=== PATIENT | female | born 1955 | race Caucasian/White ===

== ENCOUNTER → 2018-09-20 09:33 | Outpatient (CLI) | payer OTHER, SELFPAY | PROVIDERS: Visit Provider Orthopaedic Surgery Hand Surgery | DX: Z01.818 Encounter for other preprocedural examination (principal) | CPT/HCPCS: 93005 ==

== ENCOUNTER → 2018-12-10 10:14 | Outpatient (CLI) | payer OTHER, SELFPAY ==
--- NOTE | 2018-12-10 | DI.CT.S_ITS ---
PROCEDURE: CT SINUS SCREEN WO CON INDICATIONS: Chronic sinusitis, unspecified TECHNIQUE: Noncontrast 3.0 mm axial images acquired from the frontal sinuses to the mid-sella, with coronal and sagittal reformats. For radiation dose reduction, the following was used: automated exposure control, adjustment of mA and/or kV according to patient size. COMPARISON: [facility], CT, SINUS SCREEN WO CONTRAST, 12/27/2017, 8:20. FINDINGS: Image quality: Excellent. Maxillary Sinuses: No bony remodeling or destruction. There is a small mucus retention cyst in the right maxillary sinus. Ethmoid Air Cells: No bony remodeling or destruction. Sinuses are clear. Sphenoid Sinuses: No bony remodeling or destruction. Sinuses are clear. Frontal Sinuses: No bony remodeling or destruction. Sinuses are clear. Ostiomeatal Complexes: Ostiomeatal complexes are patent. Small Vitor cells are noted bilaterally. Miscellaneous: Visualized intra-orbital contents are normal. Harmony bullosa on the right. Mild left nasal septal deviation. IMPRESSION: 1. Small right maxillary sinus mucus retention cyst is noted. No sinus mucosal thickening or air-fluid levels. 2. Vitor cell are noted bilaterally causing mild narrowing of the ostiomeatal units. The ostiomeatal units are nevertheless patent. 3. Right harmony bullosa. 4. Mild left nasoseptal deviation. Dictated by: Vandana Contreras M.D. on 12/10/2018 at 10:57 Approved by: Vandana Contreras M.D. on 12/10/2018 at 11:04
== END ==
PROVIDERS: PCP Internal Medicine; Visit Provider Internal Medicine
DX: J34.1 Cyst and mucocele of nose and nasal sinus (principal); J32.9 Chronic sinusitis, unspecified; J34.3 Hypertrophy of nasal turbinates; J34.2 Deviated nasal septum
CPT/HCPCS: 70486

== ENCOUNTER → 2018-12-16 11:47 | Outpatient (CLI) | payer OTHER, SELFPAY ==
[2018-12-16 14:29] LABS: Blood Urea Nitrogen 16 mg/dL (7-17); Estimated Glomerular Filt Rate > 60.0 mL/min (>60)
== END ==
PROVIDERS: PCP Internal Medicine; Visit Provider Internal Medicine
DX: M81.0 Age-related osteoporosis without current pathological fracture (principal)
CPT/HCPCS: 36415; 82565; 84520

== ENCOUNTER → 2018-12-29 16:55 | Outpatient (CLI) | payer OTHER, SELFPAY | PROVIDERS: PCP Internal Medicine; Visit Provider Otolaryngology | DX: J30.1 Allergic rhinitis due to pollen (principal); J30.89 Other allergic rhinitis ==

== ENCOUNTER → 2019-01-06 16:01 | Outpatient (CLI) | payer OTHER, SELFPAY | PROVIDERS: PCP Internal Medicine; Visit Provider Otolaryngology | DX: J30.1 Allergic rhinitis due to pollen (principal); J30.89 Other allergic rhinitis | CPT/HCPCS: 36415; 86003 ==

== ENCOUNTER → 2019-05-12 16:17 | Outpatient (CLI) | payer OTHER, SELFPAY ==
--- NOTE | 2019-05-12 16:19 | DI.RAD.S_ITS ---
PROCEDURE: XR CERVICAL SPINE 4V OR 5V INDICATIONS: neck pain and headaches side -locked R side TECHNIQUE: 5 views of the cervical spine acquired. COMPARISON: None. FINDINGS: Bones: No fractures or dislocations to the T2 level. Grade 1 anterolisthesis of C3 on C4. Trace anterolisthesis of C4 on C5. Severe narrowing of the C5-C6 and C6-7 disc spaces. Multilevel degenerative endplate sclerosis and spurring. Diffuse facet arthropathy. Levocurvature. On the left, there is moderate diffuse otic foraminal narrowing all spinal levels. On the right, there is severe bony foraminal narrowing at the level of C5-C6 and C6-C7. There is mild right C7-T1 bony foraminal narrowing Soft tissues: No prevertebral soft tissue swelling. IMPRESSION: Multilevel cervical spondylosis and facet arthropathy as above. Levocurvature. Dictated by: Terry Gaitan M.D. on 05/12/2019 at 17:15 Approved by: Terry Gaitan M.D. on 05/12/2019 at 17:18
[2019-05-12 17:15] LABS: Erythrocyte Sedimentation Rate 14 MM/HR (0-20)
== END ==
PROVIDERS: PCP Internal Medicine; Visit Provider Family Medicine
DX: R51 Headache (principal)
CPT/HCPCS: 36415; 72050; 85651

== ENCOUNTER → 2020-02-29 14:50 | Outpatient (CLI) | payer OTHER, SELFPAY ==
[2020-02-29 16:27] LABS: BUN Creatinine Ratio 25.3 (6-22); Blood Urea Nitrogen 22 mg/dL (7-17); Estimated Glomerular Filt Rate > 60.0 mL/min (>60)
== END ==
PROVIDERS: PCP Internal Medicine; Referring Provider Internal Medicine; Visit Provider Internal Medicine
DX: M81.0 Age-related osteoporosis without current pathological fracture (principal); Z78.0 Asymptomatic menopausal state
CPT/HCPCS: 36415; 77080; 82565; 84520

== ENCOUNTER → 2020-03-08 11:14 | Outpatient (CLI) | payer OTHER, SELFPAY ==
[2020-03-08 12:35] LABS: BUN Creatinine Ratio 20.5 (6-22); Blood Urea Nitrogen 15 mg/dL (7-17); Estimated Glomerular Filt Rate > 60.0 mL/min (>60)
== END ==
PROVIDERS: PCP Internal Medicine; Referring Provider Internal Medicine; Visit Provider Internal Medicine
DX: M81.0 Age-related osteoporosis without current pathological fracture (principal)
CPT/HCPCS: 36415; 82565; 84520

== ENCOUNTER → 2020-10-31 17:43 | Outpatient (CLI) | payer OTHER, SELFPAY ==
--- NOTE | 2020-10-31 17:48 | DI.MG.S_ITS ---
BILATERAL DIGITAL SCREENING MAMMOGRAM 3D/2D WITH CAD: 10/31/2020 CLINICAL: Routine screening. Family history of breast cancer. Comparison is made to exams dated: 09/25/2019 mammogram, 08/29/2018 mammogram, and 08/30/2017 mammogram - outside location. The tissue of both breasts is heterogeneously dense. This may lower the sensitivity of mammography. Current study was also evaluated with a Computer Aided Detection (CAD) system. No significant masses, calcifications, or other findings are seen in either breast. There has been no significant interval change. IMPRESSION: NEGATIVE There is no mammographic evidence of malignancy. A 1 year screening mammogram is recommended. This exam was interpreted at Station ID: [id number]. NOTE: For mammograms, a report in lay terms will be sent to the patient. Approximately 15% of breast malignancies will not be visualized mammographically. In the management of a palpable breast mass, a negative mammogram must not discourage biopsy of a clinically suspicious lesion. Electronically Signed By: Samanta sweet/yariel:11/01/2020 13:16:08 copy to: elliott dunn, [facility] letter sent: Normal Exam ACR BI-RADS Category 1: Negative 3341F
== END ==
PROVIDERS: PCP Internal Medicine; Referring Provider Internal Medicine; Visit Provider Internal Medicine
DX: Z12.31 Encounter for screening mammogram for malignant neoplasm of breast (principal); Z80.3 Family history of malignant neoplasm of breast
CPT/HCPCS: 77063; 77067

== ENCOUNTER → 2021-02-23 07:58 | Outpatient (CLI) | payer MEDICARE, SELFPAY ==
--- NOTE | 2021-02-23 | DI.ECHO.S_ITS ---
[place] [facility]---------+ [facility] +---------+ : : [address] : : : : [id number] : : : : Phone: [phone]---------+ Echocardiogram Report + + :Name: LISA HAINES Study Date: 02/23/2021 Height: 66 in : :[facility] ReadingLocation: Weight: 114 lb : : Gender: Female BSA: 1.6 m2 : :: 1955 Age: 65 yrs BP: 131/78 mmHg: :Reason For Study: ABNORMAL EKG : :Ordering Physician: RADHA, : :AFSHAN Performed By: Milagros Lei : :Referring: AFSHAN GARCIA : + + Interpretation Summary The left ventricle is normal in size and wall thickness. Left ventricular systolic function is normal. Cannot exclude mid lateral hypokinesis due to suboptimal visualization of endocardial border lining. The right ventricle is normal in size and function. The right ventricular systolic pressure is estimated to be at least 24 mmHg based on an estimated right atrial pressure of 3 mm Hg. The left atrium is mildly dilated. Right atrial size is normal. There is no significant valvular heart disease. The aortic root is normal size. Procedure: A two-dimensional transthoracic echocardiogram with color flow and Doppler was performed. The study quality was technically adequate. There is no prior echocardiogram noted for this patient. The patient was in sinus bradycardia with heart rates between 47-63 bpm during the exam. Left Ventricle: The left ventricle is normal in size and wall thickness. Left ventricular systolic function is normal. The ejection fraction is estimated to be 60-65%. Cannot exclude mid lateral hypokinesis due to suboptimal visualization of endocardial border lining. Diastolic parameters suggest probable normal left ventricular diastolic function and normal filling pressures. Right Ventricle: The right ventricle is normal in size and function. Atria: The left atrium is mildly dilated. Right atrial size is normal. There is no Doppler evidence for an interatrial shunt. Mitral Valve: There is a flat closure plane of the the mitral valve leaflets. There is trace mitral regurgitation. Aortic Valve: The aortic valve is trileaflet. The aortic valve opens well. There is no aortic valve stenosis. No aortic regurgitation is present. Tricuspid Valve: The tricuspid valve is normal in structure and function. There is mild tricuspid regurgitation. The right ventricular systolic pressure is estimated to be at least 24 mmHg based on an estimated right atrial pressure of 3 mm Hg. Pulmonic Valve: The pulmonic valve leaflets are thin and pliable; valve motion is normal. There is no pulmonic valvular regurgitation. There is no significant valvular heart disease. Great Vessels: The aortic root is normal size. The dimensions of the ascending aorta are normal. The IVC is of normal diameter and collapses greater than 50% with a sniff. This suggests a low right atrial pressure of 3 mm Hg. Pericardium/ Pleura There is no pericardial effusion. There is no pleural effusion. MMode/2D Measurements & Calculations LVIDd: 4.3 cm LVOT diam: 2.0 cm LVIDs: 2.8 cm Ao root diam: 3.0 cm FS: 34.9 % asc Aorta Diam: 3.0 cm EPSS: 0.18 cm Ao Arch Diam (Prox Trans): 2.5 cm IVSd: 0.77 cm LVPWd: 0.75 cm LV aguilar. diameter/BSA (cm/m^2): 2.7 LV sys. diameter/BSA (cm/m^2): 1.8 LA A2 area: 20.7 cm2 RA long axis: 4.7 cm LA A4 area: 18.5 cm2 RA area: 14.1 cm2 LA length (vol): 5.2 cm RA vol: 36.3 ml LA vol: 62.4 ml RA : 23.0 ml/m2 LA vol index: 39.6 ml/m2 IVC diam: 1.4 cm RVD1 (basal): 3.1 cm TAPSE: 2.1 cm Doppler Measurements & Calculations Ao V2 max: 112.7 cm/sec LVOT Max Jared: 119.1 cm/sec Ao V2 mean: 72.7 cm/sec LV V1 max P.7 mmHg Ao max P.1 mmHg LV V1 VTI: 29.1 cm Ao mean P.4 mmHg CARLOS(I,D): 3.4 cm2 Ao V2 VTI: 27.1 cm CARLOS(V,D): 3.3 cm2 sev ratio: 1.1 CARLOS indexed to BSA (cm^2/m^2): 2.1 MV E max jared: 104.9 cm/sec TR max jared: 225.1 cm/sec MV A max jared: 54.7 cm/sec TR max P.5 mmHg MV E/A: 1.9 PA V2 max: 57.0 cm/sec Med Peak E' Jared: 6.9 cm/sec PA V2 mean: 37.2 cm/sec E/E' med: 15.1 PA mean P.65 mmHg Lat Peak E' Jared: 8.3 cm/sec PA pr(Accel): 22.5 mmHg E/E' lat: 12.6 E/e' average: 13.9 MV dec time: 0.19 sec SV(LVOT): 90.9 ml Reading Physician:04:46 PM
== END ==
PROVIDERS: PCP Internal Medicine; Referring Provider Internal Medicine; Visit Provider Internal Medicine
DX: R94.31 Abnormal electrocardiogram [ECG] [EKG] (principal)
CPT/HCPCS: 93306

== ENCOUNTER → 2021-03-24 09:25 | Outpatient (CLI) | payer MEDICARE, SELFPAY ==
[2021-03-24 10:36] LABS: Albumin 4.3 g/dL (3.5-5.0); Aspartate Aminotransferase 37 IU/L (14-36); BUN Creatinine Ratio 20.3 (6-22); Blood Urea Nitrogen 15 mg/dL (7-17); Calcium 9.2 mg/dL (8.4-10.2); Carbon Dioxide 28 mmol/L (22-32); Chloride 104 mmol/L (98-107); Cholesterol 239 mg/dL (140-199); Estimated Glomerular Filt Rate > 60.0 mL/min (>60); Glucose 99 mg/dL (80-110); HDL Cholesterol 55 mg/dL (40-60); HEMOLYSIS < 15 (0-50); LDL Cholesterol Calculated 163 mg/dL (<100); Phosphorous 3.9 mg/dL (2.8-4.1); Sodium 138 mmol/L (137-145); Triglycerides 105 mg/dL (35-150)
== END ==
PROVIDERS: PCP Internal Medicine; Referring Provider Internal Medicine; Visit Provider Internal Medicine
DX: M81.0 Age-related osteoporosis without current pathological fracture (principal); E78.2 Mixed hyperlipidemia
CPT/HCPCS: 36415; 80061; 80069; 84450

== ENCOUNTER → 2021-06-16 10:38 | Outpatient (CLI) | payer MEDICARE, SELFPAY ==
--- NOTE | 2021-06-16 | DI.CT.S_ITS ---
PROCEDURE: CT SINUS SCREEN WO CON INDICATIONS: Chronic pansinusitis TECHNIQUE: Noncontrast 3.0 mm axial images acquired from the frontal sinuses to the mid-sella, with coronal and sagittal reformats. For radiation dose reduction, the following was used: automated exposure control, adjustment of mA and/or kV according to patient size. COMPARISON: [facility], CT, CT SINUS SCREEN WO CON, 12/10/2018, 10:30. FINDINGS: Image quality: Excellent. Maxillary Sinuses: No bony remodeling or destruction. There is a small mucous retention cyst seen within the inferior aspect of the right maxillary sinus, which is similar to the prior examination. The maxillary sinuses otherwise appear clear. Ethmoid Air Cells: No bony remodeling or destruction. Sinuses are clear. Sphenoid Sinuses: No bony remodeling or destruction. Sinuses are clear. Frontal Sinuses: No bony remodeling or destruction. Sinuses are clear. Ostiomeatal Complexes: Ostiomeatal complexes are patent, yet there constitutionally narrowed, with bilateral Vitor cells. Miscellaneous: Visualized intra-orbital contents are normal. There is a small right-sided. There is mild S shaped nasal septal deviation. IMPRESSION: No significant active paranasal sinus disease is seen. A small right maxillary sinus mucous retention cyst is again seen. Constitutionally narrowed ostiomeatal complexes are again seen. Dictated by: Robert Dupree M.D. on 06/16/2021 at 9:56 Approved by: Robert Dupree M.D. on 06/16/2021 at 10:00
== END ==
PROVIDERS: PCP Internal Medicine; Referring Provider Otolaryngology; Visit Provider Otolaryngology
DX: J32.4 Chronic pansinusitis (principal); J34.1 Cyst and mucocele of nose and nasal sinus
CPT/HCPCS: 70486

== ENCOUNTER → 2021-11-11 10:22 | Outpatient (CLI) | payer MEDICARE, SELFPAY ==
--- NOTE | 2021-11-11 10:23 | DI.MG.S_ITS ---
BILATERAL DIGITAL SCREENING MAMMOGRAM 3D/2D WITH CAD: 11/11/2021 CLINICAL: Routine screening. Family history of breast cancer. Comparison is made to exams dated: 10/31/2020 mammogram - [facility], 09/25/2019 mammogram, and 08/29/2018 mammogram - outside location. The tissue of both breasts is heterogeneously dense. This may lower the sensitivity of mammography. Current study was also evaluated with a Computer Aided Detection (CAD) system. No significant masses, calcifications, or other findings are seen in either breast. There has been no significant interval change. IMPRESSION: NEGATIVE There is no mammographic evidence of malignancy. A 1 year screening mammogram is recommended. This exam was interpreted at Station ID: [id number]. NOTE: For mammograms, a report in lay terms will be sent to the patient. Approximately 15% of breast malignancies will not be visualized mammographically. In the management of a palpable breast mass, a negative mammogram must not discourage biopsy of a clinically suspicious lesion. Electronically Signed By: Zhou Maradiaga M.D., jr/yariel:11/13/2021 09:12:18 copy to: elliott dunn, [facility] letter sent: Normal Exam ACR BI-RADS Category 1: Negative 3341F
== END ==
PROVIDERS: PCP Internal Medicine; Referring Provider Internal Medicine; Visit Provider Internal Medicine
DX: Z12.31 Encounter for screening mammogram for malignant neoplasm of breast (principal); Z80.3 Family history of malignant neoplasm of breast
CPT/HCPCS: 77063; 77067

== ENCOUNTER → 2022-02-16 10:26 | Outpatient (CLI) | payer MEDICARE, SELFPAY | PROVIDERS: PCP Internal Medicine; Referring Provider Internal Medicine; Visit Provider Internal Medicine | DX: M81.0 Age-related osteoporosis without current pathological fracture (principal) | CPT/HCPCS: 77080 ==

== ENCOUNTER → 2022-03-20 07:42 | Outpatient (CLI) | payer MEDICARE, SELFPAY ==
[2022-03-20 10:16] LABS: Alanine Aminotransferase 38 IU/L (<35); Aspartate Aminotransferase 37 IU/L (14-36); Cholesterol 148 mg/dL (140-199); Creatine Kinase 50 U/L (30-135); HDL Cholesterol 55 mg/dL (40-60); LDL Cholesterol Calculated 77 mg/dL (<100); Triglycerides 78 mg/dL (35-150)
[2022-03-20 10:21] LABS: BUN Creatinine Ratio 25.3 (6-22); Blood Urea Nitrogen 20 mg/dL (7-17); Calcium 8.9 mg/dL (8.4-10.2); Carbon Dioxide 28 mmol/L (22-32); Chloride 107 mmol/L (98-107); Estimated Glomerular Filt Rate > 60 mL/min (>60); Glucose 86 mg/dL (80-110); HEMOLYSIS < 15 (0-50); Magnesium 2.2 mg/dL (1.6-2.3); Potassium 4.1 mmol/L (3.4-5.1); Sodium 141 mmol/L (137-145)
[2022-03-20 10:27] LABS: LDL Cholesterol Direct 65 mg/dL (<100)
[2022-03-20 10:35] LABS: Vitamin D 25 Hydroxy (D3) 61.7 ng/mL (30.0-100.0)
[2022-03-21 08:53] LABS: Parathyroid Hormone Int 26 pg/mL (15-65)
== END ==
PROVIDERS: Internal Medicine Interventional Cardiology; PCP Internal Medicine; Referring Provider Internal Medicine; Visit Provider Internal Medicine
DX: E78.5 Hyperlipidemia, unspecified (principal); M81.0 Age-related osteoporosis without current pathological fracture
CPT/HCPCS: 36415; 80048; 80061; 82306; 82550; 83721; 83735; 83970; 84100; 84450; 84460

== ENCOUNTER → 2022-03-22 09:35 | Outpatient (CLI) | payer MEDICARE, SELFPAY ==
[2022-03-22 11:43] LABS: Collection Time Urine 24 Hours; Creatinine 24 Hour Urine 1108 mg/day (800-1800); Creatinine Urine Random 40.3 mg/dL; Protein (Total) Urine Random 8 mg/dL (0-12); Total Protein 24 Hour Urine 220 mg/day (42-225); Total Volume Urine 2750 mL
[2022-04-10 11:59] LABS: Calcium 24 Hour Urine 259 mg/day (100-300); Calcium Urine Random 9.4 mg/dL; Collection Time Urine 24 Hours; Total Volume Urine 2750 mL
== END ==
PROVIDERS: PCP Internal Medicine; Referring Provider Internal Medicine; Visit Provider Internal Medicine
DX: M81.0 Age-related osteoporosis without current pathological fracture (principal)
CPT/HCPCS: 82340; 82570; 84156

== ENCOUNTER 2022-04-02 21:13 | Emergency (ER) | payer MEDICARE, SELFPAY ==
[2022-04-02] VITALS (15 sets, daily range): BP systolic 92–148; BP diastolic 53–91; PULSE 52–135; RESP 16–27; TEMP 36.9; O2SAT 96–100; BMI 18.1
--- NOTE | 2022-04-02 21:28 | DI.RAD.S_ITS ---
PROCEDURE: XR CHEST 1V INDICATIONS: chest pain TECHNIQUE: One view of the chest was acquired. COMPARISON: [facility], , CHEST 2 VIEW, 12/10/2013, 13:35. FINDINGS: Surgical changes and devices: None. Lungs and pleura: Right lung apex is partially obscured by patient's neck soft tissues. Visualized lungs are clear. There is hyperinflation of the lungs with flattening of the hemidiaphragms compatible with COPD. No pleural effusions or definite pneumothorax. Mediastinum: Mediastinal contours appear normal. Heart size is normal. Bones and chest wall: No suspicious bony lesions. Overlying soft tissues appear unremarkable. IMPRESSION: 1. No definite acute cardiopulmonary disease. 2. Findings compatible with COPD. Dictated by: Titus Means M.D. on 04/02/2022 at 22:44 Approved by: Titus Means M.D. on 04/02/2022 at 22:45
[2022-04-02 21:47] LABS: Add Manual Diff / Slide Review NO; Basophils Absolute Auto 100 /uL (0-100); Basophils Percent Auto 0.9 % (0-2); Eosinophils Absolute Auto 200 /uL (0-450); Eosinophils Percent Auto 2.1 % (2-4); Hemoglobin 15.1 g/dL (12.0-16.0); Lymphocytes Absolute Auto 2700 /uL (1100-4500); Lymphocytes Percent Auto 35.8 % (25-40); Mean Corpuscular HGB Conc 34.3 % (30-36); Mean Corpuscular Hemoglobin 32.2 PG (26-34); Mean Corpuscular Volume 93.9 fL (80-100); Monocytes Absolute Auto 700 /uL (0-900); Monocytes Percent Auto 8.7 % (3-14); Neutrophils Absolute Auto 4000 /uL (1500-7000); Neutrophils Percent Auto 52.5 % (50-75); Platelet Count 243 X10^3/uL (150-400); Red Blood Cell Count 4.69 X10^6/uL (4.0-5.2); Red Cell Distribution Width 12.6 % (11.6-14.8); White Blood Cell Count 7.7 X10^3/uL (4.5-11.0)
[2022-04-02 21:50] LABS: Prothrombin Time 11.4 SECONDS (10.1-12.7)
--- NOTE | 2022-04-02 21:50 | ED_ITS ---
HPI - Arrhythmia/Palpitations General Chief Complaint: Arrhythmia/Palpitations Stated Complaint: BLOOD PRESSURE IF OFF HIGH PULSE Time Seen by Provider: 04/02/22 21:33 Source: patient and family Mode of arrival: Ambulatory History of Present Illness HPI narrative: 66-year-old female without prior history of atrial fibrillation who is here for evaluation of just over 12 hours of palpitations. She also states that her blood pressures been elevated. She denies chest pain. No shortness of breath. No lightheadedness. She woke up this morning feeling like her heart was beating fast. She is on metoprolol and she has been taking this medication as directed and it has not improved any of her symptoms. Denies any fevers. No recent t ravel. Related Data Home Medications Medication Instructions Recorded Confirmed pseudoephedrine HCl 120 mg 120 mg PO Q12HP PRN ##0 05/10/17 01/26/22 tablet,extended release (Sudafed 12 Hour) cholecalciferol (vitamin D3) 50 50 mcg PO DAILY 01/26/22 01/26/22 mcg (2,000 unit) capsule fexofenadine 180 mg tablet 180 mg PO DAILY 01/26/22 01/26/22 (Erika Allergy) flaxseed oil 1,000 mg capsule 1,000 mg PO DAILY 01/26/22 01/26/22 multivitamin 1 tab PO DAILY 01/26/22 01/26/22 Previous Rx's Medication Instructions Recorded amlodipine 10 mg tablet 10 mg PO DAILY #90 tabs 01/26/22 metoprolol tartrate 25 mg tablet 25 mg PO BID #180 tabs 01/26/22 rosuvastatin 10 mg tablet 10 mg PO DAILY #90 tabs 01/26/22 apixaban 5 mg tablet (Eliquis) 5 mg PO BID 4 weeks #56 tabs 04/02/22 Allergies Allergy/AdvReac Type Severity Reaction Status Date / Time Sulfa (Sulfonamide Allergy Unknown Rash Verified 01/26/22 13:33 Antibiotics) [SULFA (SULFONAMIDE ANTIBIOTICS)] valsartan AdvReac Mild Nausea Verified 01/26/22 13:33 Review of Systems Constitutional Constitutional: Denies fever(s) Cardiovascular Cardiovascular: Reports system reviewed and no additional complaints, except as documented Respiratory Respiratory: Reports system reviewed and no additional complaints, except as documented Integumentary/Breasts Skin/Breast: Reports system reviewed and no additional complaints, except as documented Hematologic/Lymphatic On Anticoagulants: No Patient History Medical History Allergic rhinitis Chicken pox (~1958) Chronic sinusitis Essential hypertension Fractures (~1993) Measles (~1961) Mixed hyperlipidemia Mumps (~1959) Osteoarthritis (~2017) Osteoporosis (~2016) Vision disorder Surgical History Anesthesia History of dilatation and curettage (~2007) History of eye surgery (~2005) History of gastric surgery (~2016) History of skin graft (~1975) Trigger thumb (~2018) Family History Father Prostate cancer Lung cancer Hypertension Hyperlipidemia Mother Hypertension Hyperlipidemia Stroke Brother Parkinson's disease Brother Mental health problem Grandfather Parkinson's disease Grandfather History of emphysema Grandmother Dementia Social History Smoking Status: Former smoker Smoking Status: Former smoker Substance Use Type: does not use Exam Initial Vital Signs Initial Vital Signs: Vital Signs Temperature 98.5 F 04/02/22 21:15 Pulse Rate 135 H 04/02/22 21:15 Respiratory Rate 16 04/02/22 21:15 Blood Pressure 141/79 H 04/02/22 21:15 Pulse Oximetry 100 04/02/22 21:15 Oxygen Delivery Method 04/02/22 21:15 Const General: cooperative, healthy appearing and comfortable [facility] Head: normal to inspection and normocephalic Resp Effort & Inspection: normal respiratory effort Auscultation: clear to auscultation bilaterally Cardio Rate: tachycardic Rhythm: regular rhythm GI Inspection: normal to inspection Skin General: no rashes or lesions noted Neuro General: patient alert, patient awake, patient oriented x3 and moves all extremities Extrem General: normal to inspection and capillary refill normal Procedures Cardioversion Consent Signed: Yes Indication: Atrial fibrillation Stability: Stable Number of attempts (shocks): 1 Joules used: 120 Cardiac rhythm post-cardioversion: Sinus rhythm Procedural Sedation Consent signed: Yes Time out performed: Yes Indication: cardioversion Preparation: restaurant line server applied, pulse oximeter, capnometry used, supplemental O2 applied, suction/airway equipment at bedside and IV secured Fentanyl: IV IV Propofol dose (mg): 70 Intraservice time/total sedation time (min): 10 ED Sedation Level: Moderate (Concious) Patient Tolerated Procedure: Well and No complications Course Orders Ordered: ED Orders 04/02/22 21:28 XR chest 1V Stat EKG-12 Lead Stat 04/02/22 21:30 Complete Blood Count AUTO DIFF Stat Comprehensive Metabolic Panel Stat Lipase Stat Magnesium Stat Partial Thromboplastin Time Stat Prothrombin Time INR Stat TSH [Thyroid Stimulating Hormone] Stat Troponin & CK Cardiac Panel Stat 04/02/22 21:49 COVID19 -Nasal RAPID/Pre-Proc Stat 04/02/22 21:52 EKG-12 Lead Stat Discontinued Medications Apixaban (Apixaban 5 Mg Tablet) 5 mg PO NOW ONE Stop: 04/02/22 23:24 Last Admin: 04/02/22 23:29 Dose: 5 mg Documented By: DANIEL Fentanyl (Fentanyl 100 Mcg/2 Ml Inj) 12.5 mcg IV NOW ONE Stop: 04/02/22 21:52 Last Admin: 04/02/22 22:44 Dose: 12.5 mcg Documented By: DANIEL Sodium Chloride (Normal Saline 0.9%) 1,000 mls @ 125 mls/hr IV CONT PAVAN Last Infusion: 04/02/22 23:50 Dose: 0 mls/hr Documented By: Admin: 04/02/22 22:30 Dose: 125 mls/hr Documented By: DANIEL Propofol (Propofol 200 Mg/20 Ml Vial) 100 mg 2 mg/kg (100 mg) IV NOW ONE Stop: 04/02/22 21:52 Last Admin: 04/02/22 22:46 Dose: 70 mg Documented By: DANIEL Vital Signs Vital signs: Vital Signs - 8 hr 04/02/22 21:15 04/02/22 22:42 04/02/22 21:30 Temperature 98.5 F Pulse Rate 135 H 92 H 134 H Respiratory Rate 16 18 22 Blood Pressure 141/79 H 133/79 Pulse Oximetry 100 98 Oxygen Delivery Method Room Air Oxygen Flow Rate 04/02/22 22:00 04/02/22 22:00 04/02/22 22:30 Temperature Pulse Rate 101 H 102 H Respiratory Rate 27 H Blood Pressure 148/91 H Pulse Oximetry Oxygen Delivery Method Oxygen Flow Rate 04/02/22 22:45 04/02/22 22:45 04/02/22 22:50 Temperature Pulse Rate 96 H 83 Respiratory Rate 21 23 Blood Pressure 133/79 Pulse Oximetry 99 97 Oxygen Delivery Method Nasal Cannula Oxygen Flow Rate 2 04/02/22 22:50 04/02/22 22:56 04/02/22 22:56 Temperature Pulse Rate 54 L Respiratory Rate 23 Blood Pressure 92/59 L 107/53 L Pulse Oximetry 97 Oxygen Delivery Method Room Air Oxygen Flow Rate 04/02/22 23:00 04/02/22 23:00 04/02/22 23:05 Temperature Pulse Rate 55 L Respiratory Rate 19 Blood Pressure 110/56 L 114/58 L Pulse Oximetry 96 Oxygen Delivery Method Oxygen Flow Rate 04/02/22 23:05 04/02/22 23:10 04/02/22 23:10 Temperature Pulse Rate 55 L 52 L Respiratory Rate 18 18 Blood Pressure 103/57 L Pulse Oximetry 97 97 Oxygen Delivery Method Room Air Oxygen Flow Rate 04/02/22 23:15 04/02/22 23:15 04/02/22 23:20 Temperature Pulse Rate 52 L Respiratory Rate 22 Blood Pressure 109/62 134/61 Pulse Oximetry 97 Oxygen Delivery Method Oxygen Flow Rate 04/02/22 23:20 04/02/22 23:25 04/02/22 23:25 Temperature Pulse Rate 52 L 53 L Respiratory Rate 21 19 Blood Pressure 129/70 Pulse Oximetry 98 98 Oxygen Delivery Method Oxygen Flow Rate 04/02/22 23:30 Temperature Pulse Rate 59 L Respiratory Rate 26 H Blood Pressure Pulse Oximetry 99 Oxygen Delivery Method Room Air Oxygen Flow Rate MDM - Arrhythmia/Palpitations Lab Data Result diagrams: 04/02/22 21:30 04/02/22 21:30 Labs: Lab Results 04/02/22 04/02/22 04/02/22 Range/Units 21:30 21:30 21:30 WBC 7.7 (4.5-11.0) X10^3/uL RBC 4.69 (4.0-5.2) X10^6/uL Hgb 15.1 (12.0-16.0) g/dL Hct 44.0 (36-46) % MCV 93.9 (80-100) fL MCH 32.2 (26-34) PG MCHC 34.3 (30-36) % RDW 12.6 (11.6-14.8) % Plt Count 243 (150-400) X10^3/uL Neut % (Auto) 52.5 (50-75) % Lymph % (Auto) 35.8 (25-40) % Barnwell % (Auto) 8.7 (3-14) % Eos % (Auto) 2.1 (2-4) % Baso % (Auto) 0.9 (0-2) % Neut # (Auto) 4000 (7881-3063) /uL Lymph # (Auto) 2700 (9393-9759) /uL Barnwell # (Auto) 700 (0-900) /uL Eos # (Auto) 200 (0-450) /uL Baso # (Auto) 100 (0-100) /uL PT 11.4 (10.1-12.7) SECONDS INR 1.0 (0.9-1.3) APTT 31 (26.4-36.2) SECONDS Sodium 141 (137-145) mmol/L Potassium 3.8 (3.4-5.1) mmol/L Chloride 106 (98-107) mmol/L Carbon Dioxide 23 (22-32) mmol/L BUN 31 H (7-17) mg/dL Creatinine 0.88 (0.52-1.04) mg/dL Estimated GFR > 60 (>60) mL/min BUN/Creatinine Ratio 35.2 H (6-22) Glucose 145 H (80-110) mg/dL Calcium 9.6 (8.4-10.2) mg/dL Magnesium 2.1 (1.6-2.3) mg/dL Total Bilirubin 0.3 (0.2-1.3) mg/dL AST 35 (14-36) IU/L ALT 29 (<35) IU/L Alkaline Phosphatase 88 (38-126) U/L Total Creatine Kinase 74 (30-135) U/L CK-MB (CK-2) TNP CK-MB (CK-2) Rel Index TNP Troponin I < 0.012 (0.01-0.034) ng/mL Total Protein 7.6 (6.3-8.2) g/dL Albumin 4.7 (3.5-5.0) g/dL Globulin 2.9 (1.7-4.1) g/dL Albumin/Globulin Ratio 1.6 (1.0-2.8) Lipase 204 (23-300) U/L TSH (0.47-4.68) uIU/mL SARS-CoV-2 (PCR) (Negative) 04/02/22 04/02/22 Range/Units 21:30 21:49 WBC (4.5-11.0) X10^3/uL RBC (4.0-5.2) X10^6/uL Hgb (12.0-16.0) g/dL Hct (36-46) % MCV (80-100) fL MCH (26-34) PG MCHC (30-36) % RDW (11.6-14.8) % Plt Count (150-400) X10^3/uL Neut % (Auto) (50-75) % Lymph % (Auto) (25-40) % Barnwell % (Auto) (3-14) % Eos % (Auto) (2-4) % Baso % (Auto) (0-2) % Neut # (Auto) (6443-3299) /uL Lymph # (Auto) (9210-3224) /uL Barnwell # (Auto) (0-900) /uL Eos # (Auto) (0-450) /uL Baso # (Auto) (0-100) /uL PT (10.1-12.7) SECONDS INR (0.9-1.3) APTT (26.4-36.2) SECONDS Sodium (137-145) mmol/L Potassium (3.4-5.1) mmol/L Chloride (98-107) mmol/L Carbon Dioxide (22-32) mmol/L BUN (7-17) mg/dL Creatinine (0.52-1.04) mg/dL Estimated GFR (>60) mL/min BUN/Creatinine Ratio (6-22) Glucose (80-110) mg/dL Calcium (8.4-10.2) mg/dL Magnesium (1.6-2.3) mg/dL Total Bilirubin (0.2-1.3) mg/dL AST (14-36) IU/L ALT (<35) IU/L Alkaline Phosphatase (38-126) U/L Total Creatine Kinase (30-135) U/L CK-MB (CK-2) CK-MB (CK-2) Rel Index Troponin I (0.01-0.034) ng/mL Total Protein (6.3-8.2) g/dL Albumin (3.5-5.0) g/dL Globulin (1.7-4.1) g/dL Albumin/Globulin Ratio (1.0-2.8) Lipase (23-300) U/L TSH 3.61 (0.47-4.68) uIU/mL SARS-CoV-2 (PCR) Negative (Negative) Point of Care Testing Test Results Not applicable Imaging Data Chest x-ray: Radiologist's Impresson: [address] [address] XRay Report Signed Patient: Mani Elder MR#: [id number] : 1955 Acct:[id number] Age/Sex: 66 / F Date of Service: 04/02/22 Loc: ED Accession Number: [id number] ?? Procedure: XR chest 1V Ordering Provider: Mikhail Acuña D.O. PROCEDURE:? XR CHEST 1V ? INDICATIONS:? chest pain ? TECHNIQUE:? One view of the chest was acquired.? ? COMPARISON:? [facility], , CHEST 2 VIEW, 12/10/2013, 13:35. ? FINDINGS:? ? Surgical changes and devices:? None.? ? Lungs and pleura:? Right lung apex is partially obscured by patient's neck soft tissues.? Visualized lungs are clear. There is hyperinflation of the lungs with flattening of the hemidiaphragms compatible with COPD.? ? No pleural effusions or definite pneumothorax.? ? Mediastinum:? Mediastinal contours appear normal.? Heart size is normal.? ? Bones and chest wall:? No suspicious bony lesions.? Overlying soft tissues appear unremarkable.? ? IMPRESSION:? ? 1. No definite acute cardiopulmonary disease. ? 2. Findings compatible with COPD. ? ? Dictated by: Titus Means M.D. on 04/02/2022 at 22:44 ? ? Approved by: Titus Means M.D. on 04/02/2022 at 22:45? ECG Data Interpretation: Atrial fibrillation Ventricular rate 104 Normal axis Normal QRS Nonspecific ST T wave changes Post cardioversion Sinus bradycardia Ventricular rate of 53 Normal axis Normal QRS Normal QTC No ST T wave changes MDM Narrative Medical decision making narrative: Patient's labs unremarkable. Chest x-ray is unremarkable. Is in atrial fibrillation. Onset appears to be less than 12 hours ago. To discuss risks and benefits of cardioversion to include sedation. We also discussed alternatives to include rate control and probable admission to the hospital. After this discussion with her at bedside patient opted for cardioversion. She tolerated the procedure well. This was successful. Will start on anticoagulation for the next 4 weeks. She already has an established sports physical therapist who she will contact tomorrow for follow-up. She will continue the rest of her medications as directed. She was return precautions. She expressed understanding and agreement. Discharge Plan Departure Patient Disposition: Home Clinical Impression: Atrial fibrillation Instructions: DI for Cardioversion, DI for Atrial Fibrillation Activity Restrictions/Additional Instructions: A prescription for Eliquis was transmitted to [facility]. Please take it as di rected. Contact your sports physical therapist for a follow-up and also your primary care doctor for follow-up. Continue all of your medications as directed. Return to the emergency department for any new or worsening symptoms. Prescriptions: New Eliquis 5 mg tablet 5 mg PO BID 28 Days Qty: 56 0RF No Action pseudoephedrine HCl [Sudafed 12 Hour] 120 MG tablet extended release 120 mg PO Q12HP PRNQty: 0 fexofenadine [Erika Allergy] 180 mg tablet 180 mg PO DAILY multivitamin Tablet 1 tab PO DAILY cholecalciferol (vitamin D3) 50 mcg (2,000 unit) capsule 50 mcg PO DAILY flaxseed oil 1,000 mg capsule 1,000 mg PO DAILY Rx Instructions: administer with a meal amlodipine 10 mg tablet 10 mg PO DAILY Qty: 90 3RF metoprolol tartrate 25 mg tablet 25 mg PO BID Qty: 180 3RF rosuvastatin 10 mg tablet 10 mg PO DAILY Qty: 90 3RF Referrals: Romeo Long MD [Primary Care Provider] - Visit Report Forms: Patient Portal/API
[2022-04-02 21:53] LABS: PTT Partial Thromboplastin Tim 31 SECONDS (26.4-36.2)
[2022-04-02 21:57] LABS: Alanine Aminotransferase 29 IU/L (<35); Albumin 4.7 g/dL (3.5-5.0); Albumin Globulin Ratio 1.6 (1.0-2.8); Alkaline Phosphatase 88 U/L (38-126); Aspartate Aminotransferase 35 IU/L (14-36); BUN Creatinine Ratio 35.2 (6-22); Bilirubin Total 0.3 mg/dL (0.2-1.3); Blood Urea Nitrogen 31 mg/dL (7-17); Calcium 9.6 mg/dL (8.4-10.2); Carbon Dioxide 23 mmol/L (22-32); Chloride 106 mmol/L (98-107); Creatine Kinase 74 U/L (30-135); Estimated Glomerular Filt Rate > 60 mL/min (>60); Globulin 2.9 g/dL (1.7-4.1); Glucose 145 mg/dL (80-110); HEMOLYSIS 25 (0-50); Lipase 204 U/L (23-300); Magnesium 2.1 mg/dL (1.6-2.3); Potassium 3.8 mmol/L (3.4-5.1); Sodium 141 mmol/L (137-145); Total Protein 7.6 g/dL (6.3-8.2)
[2022-04-02 22:08] LABS: COVID19 -Nasal RAPID Negative (Negative)
[2022-04-02 22:09] LABS: Troponin I < 0.012 ng/mL (0.01-0.034)
[2022-04-02] MEDS: SODIUM CHLORIDE 0.9% 1,000 ML 125 ML IV (22:30)
[2022-04-02 22:38] LABS: Thyroid Stimulating Hormone 3.61 uIU/mL (0.47-4.68)
[2022-04-02] MEDS: fentaNYL 100 MCG/2 ML INJ 12.5 MCG IV (22:44)
[2022-04-02] MEDS: propofoL 200 MG/20 ML VIAL 100 MG IV (22:46)
[2022-04-02] MEDS: APIXABAN 5 MG TABLET PO (23:29)
== END 2022-04-02 23:51 | disposition home or self-care (01) ==
PROVIDERS: Emergency Provider Emergency Medicine; PCP Internal Medicine
DX: I48.91 Unspecified atrial fibrillation (principal); Z20.822 Contact with and (suspected) exposure to COVID-19
CPT/HCPCS: 36415; 71045; 80053; 82550; 83690; 83735; 84443; 84484; 85025; 85610; 85730; 87635; 92960; 93005; 93010; 96360; 99152; 99285; C9803; J2704; J3010

== ENCOUNTER → 2022-05-08 08:02 | Outpatient (CLI) | payer MEDICARE, SELFPAY ==
--- NOTE | 2022-05-08 | DI.ECHO.S_ITS ---
[facility] +---------+ : : [address] : : : : [id number] : : : : Phone: [phone]+ Echocardiogram Report + + :Name: LISA HAINES Study Date: 05/08/2022 Height: 66 in : :[facility] ReadingLocation: Weight: 113 lb : : Gender: Female BSA: 1.6 m2 : :: 1955 Age: 66 yrs BP: 138/77 mmHg: :Reason For Study: ATRIAL FIBRILLATION : :Ordering Physician: : :AFSHAN GARCIA Performed By: Milagros Lei : :Referring: JENNIFER PACE : + + Interpretation Summary The patient was in sinus rhythm with heart rates between 50-74 bpm during the exam. Normotensive during exam The left ventricle is normal in size and wall thickness. The ejection fraction is estimated to be 60-65%. Diastolic parameters suggest a restrictive filling pattern consistent with probable significantly elevated filling pressures. The left atrium is mildly dilated. There is mild mitral regurgitation. There is mild to moderate tricuspid regurgitation. The right ventricular systolic pressure is estimated to be at least 39 mmHg based on an estimated right atrial pressure of 3 mm Hg. Compared to prior study, no significant change. Procedure: A two-dimensional transthoracic echocardiogram with color flow and Doppler was performed. The study quality was technically adequate. Comparison is made with the echocardiogram of 02/23/2021. The patient was in sinus rhythm with heart rates between 50-74 bpm during the exam. Normotensive during exam. Left Ventricle: The left ventricle is normal in size and wall thickness. The ejection fraction is estimated to be 60-65%. Diastolic parameters suggest a restrictive filling pattern consistent with probable significantly elevated filling pressures. Right Ventricle: The right ventricle is normal in size and function. Atria: The left atrium is mildly dilated. Right atrial size is normal. There is no Doppler evidence for an interatrial shunt. Mitral Valve: The mitral valve is normal in structure and function. There is mild mitral regurgitation. Aortic Valve: The aortic valve is trileaflet. The aortic valve opens well. There is no aortic valve stenosis. No aortic regurgitation is present. Tricuspid Valve: The tricuspid valve is normal in structure and function. There is mild to moderate tricuspid regurgitation. The right ventricular systolic pressure is estimated to be at least 39 mmHg based on an estimated right atrial pressure of 3 mm Hg. Pulmonic Valve: The pulmonic valve leaflets are thin and pliable; valve motion is normal. There is mild pulmonic regurgitation. Great Vessels: The aortic root is normal size. The dimensions of the ascending aorta are normal. The IVC is of normal diameter and collapses greater than 50% with a sniff. This suggests a low right atrial pressure of 3 mm Hg. Pericardium/ Pleura There is no pericardial effusion. There is no pleural effusion. MMode/2D Measurements & Calculations LVIDd: 4.4 cm LVOT diam: 2.0 cm LVIDs: 2.8 cm Ao root diam: 2.9 cm FS: 36.8 % asc Aorta Diam: 3.2 cm IVSd: 0.87 cm Ao Arch Diam (Prox Trans): 2.8 cm LVPWd: 0.84 cm LV aguilar. diameter/BSA (cm/m^2): 2.8 LV sys. diameter/BSA (cm/m^2): 1.8 LA A2 area: 19.8 cm2 RA long axis: 4.7 cm LA A4 area: 21.7 cm2 RA area: 14.9 cm2 LA length (vol): 5.7 cm RA vol: 40.3 ml LA vol: 64.0 ml RA : 25.7 ml/m2 LA vol index: 40.8 ml/m2 IVC diam: 1.8 cm RVD1 (basal): 3.5 cm RVD2 (mid): 2.8 cm TAPSE: 2.0 cm Doppler Measurements & Calculations Ao V2 max: 138.4 cm/sec LVOT Max Jared: 131.0 cm/sec Ao V2 mean: 97.4 cm/sec LV V1 max P.9 mmHg Ao max P.7 mmHg LV V1 VTI: 30.2 cm Ao mean P.2 mmHg CARLOS(I,D): 2.7 cm2 Ao V2 VTI: 34.5 cm CARLOS(V,D): 2.9 cm2 sev ratio: 0.88 CARLOS indexed to BSA (cm^2/m^2): 1.7 MV E max jared: 148.1 cm/sec TR max jared: 300.6 cm/sec MV A max jared: 59.0 cm/sec TR max P.1 mmHg MV E/A: 2.5 PA V2 max: 69.3 cm/sec Med Peak E' Jared: 8.5 cm/sec PA V2 mean: 53.3 cm/sec E/E' med: 17.5 PA mean P.2 mmHg Lat Peak E' Jared: 9.4 cm/sec PA pr(Accel): 19.1 mmHg E/E' lat: 15.7 E/e' average: 16.6 MV dec time: 0.15 sec SV(LVOT): 91.6 ml Reading Physician:JO
== END ==
PROVIDERS: PCP Internal Medicine; Referring Provider Internal Medicine Clinical Cardiac Electrophysiology; Visit Provider Internal Medicine Clinical Cardiac Electrophysiology
DX: I48.0 Paroxysmal atrial fibrillation (principal); I08.1 Rheumatic disorders of both mitral and tricuspid valves; G47.30 Sleep apnea, unspecified; Z87.898 Personal history of other specified conditions
CPT/HCPCS: 93306; 99213

== ENCOUNTER → 2022-10-29 07:17 | Outpatient (CLI) | payer MEDICARE, SELFPAY ==
[2022-10-29 09:01] LABS: Cholesterol 154 mg/dL (140-199); HDL Cholesterol 61 mg/dL (40-60); LDL Cholesterol Calculated 76 mg/dL (<100); Triglycerides 84 mg/dL (35-150)
== END ==
PROVIDERS: PCP Internal Medicine; Referring Provider Internal Medicine Interventional Cardiology; Visit Provider Internal Medicine Interventional Cardiology
DX: E78.5 Hyperlipidemia, unspecified (principal)
CPT/HCPCS: 36415; 80061

== ENCOUNTER → 2022-11-22 09:59 | Outpatient (CLI) | payer MEDICARE, SELFPAY ==
--- NOTE | 2022-11-22 | DI.MG.S_ITS ---
BILATERAL DIGITAL SCREENING MAMMOGRAM 3D/2D WITH CAD: 11/22/2022 CLINICAL: Routine screening. Family history of breast cancer. Comparison is made to exams dated: 11/11/2021 mammogram, 10/31/2020 mammogram - [facility], and 09/25/2019 mammogram - outside location. Both breasts are heterogeneously dense, which may obscure small masses (category c / 51-75% glandular tissue). Current study was also evaluated with a Computer Aided Detection (CAD) system. No significant masses, calcifications, or other findings are seen in either breast. There has been no significant interval change. IMPRESSION: NEGATIVE There is no mammographic evidence of malignancy. A 1 year screening mammogram is recommended. Based on the Tyrer Cuzick model (a risk assessment model) the patient's lifetime risk is 9.9% and her 10 year risk is 5.0%. According to the ACR, ACS, and NCCN guidelines, an annual breast MRI exam along with mammogram is recommended if the patient's lifetime risk is 20% or greater. This exam was interpreted at Station ID: [id number]. NOTE: For mammograms, a report in lay terms will be sent to the patient. Approximately 15% of breast malignancies will not be visualized mammographically. In the management of a palpable breast mass, a negative mammogram must not discourage biopsy of a clinically suspicious lesion. Electronically Signed By: Zhou Maradiaga M.D., jr/yariel:11/22/2022 15:21:51 copy to: elliott dunn, [facility] letter sent: Normal Exam ACR BI-RADS Category 1: Negative 3341F
== END ==
PROVIDERS: PCP Internal Medicine; Referring Provider Internal Medicine; Visit Provider Internal Medicine
DX: Z12.31 Encounter for screening mammogram for malignant neoplasm of breast (principal); Z80.3 Family history of malignant neoplasm of breast
CPT/HCPCS: 77063; 77067

== ENCOUNTER → 2023-02-19 09:52 | Outpatient (CLI) | payer MEDICARE, SELFPAY ==
--- NOTE | 2023-02-19 09:53 | DI.RAD.S_ITS ---
Bone Density Report Name: LISA HAINES Age: 67 Sex: Female Ethnicity: White Date of : 1955 Indication: postmenopausal; screening for osteoporosis; Referring Provider: AFSHAN GARCIA Study: Bone densitometry was performed. Exam Date: February 19, 2023 Accession number: [id number] Bone Density: Region BMD T-score Z-score Classification AP Spine(L1-L4) 0.772 -2.5 -0.6 Osteoporosis Femoral Neck (Left) 0.465 -3.5 -1.8 Osteoporosis Total Hip (Left) 0.667 -2.3 -0.9 Osteopenia Femoral Neck (Right) 0.469 -3.4 -1.8 Osteoporosis Total Hip (Right) 0.734 -1.7 -0.4 Osteopenia Total Hip Mean 0.700 -2.0 -0.7 Osteopenia World Health Organization criteria for BMD impression classify patients as: Normal (T-score at or above -1.0), Osteopenia (T-score between -1.0 and -2.5), or Osteoporosis (T-score at or below -2.5). 10-year Fracture Risk: FRAX not reported because: Some T-score for Spine Total or Hip Total or Femoral Neck at or below -2.5 Treated for osteoporosis Impression: The patient has osteoporosis, based on the Left Femoral Neck T-score. Discussion: It is important to ask patients whether they are taking their medications and to encourage continued and appropriate compliance with their osteoporosis therapies to reduce fracture risk. It is also important to review their risk factors and encourage appropriate calcium and vitamin D intakes, exercise, fall prevention and other lifestyle measures. Follow-Up: Consider a repeat BMD and Vertebral Fracture Assessment (VFA) exam in 2 years or sooner if medically necessary, to reassess this patient's status. Reported by: DIONICIO RAINEY M.D. on 02/19/2023 10:18:00 AM.
== END ==
PROVIDERS: PCP Internal Medicine; Referring Provider Internal Medicine; Visit Provider Internal Medicine
DX: M81.0 Age-related osteoporosis without current pathological fracture (principal)
CPT/HCPCS: 77080

== ENCOUNTER → 2023-03-18 07:15 | Outpatient (CLI) | payer MEDICARE, SELFPAY | PROVIDERS: PCP Internal Medicine; Referring Provider Internal Medicine Endocrinology, Diabetes & Metabolism; Visit Provider Internal Medicine Endocrinology, Diabetes & Metabolism | DX: M81.6 Localized osteoporosis [Lequesne] (principal) | CPT/HCPCS: 82523; 82570 ==

== ENCOUNTER → 2023-04-18 11:49 | Outpatient (CLI) | payer MEDICARE, SELFPAY ==
--- NOTE | 2023-04-18 11:51 | DI.CT.S_ITS ---
PROCEDURE: CT SOFT TISSUE NECK W CON INDICATIONS: Pain in throat TECHNIQUE: After the administration of intravenous contrast, 3.0 mm axial sections acquired from the sella to the aortic arch. Additional oblique axial 3.0 mm sections acquired through the pharynx. 3 mm thick coronal and sagittal reformats were generated. For radiation dose reduction, the following was used: automated exposure control. COMPARISON: None. FINDINGS: Image quality: There is artifact associated with the metallic hardware. Artifact from the metallic hardware is reduced by metal reconstruction algorithm. Lymph nodes: No enlarged lymph nodes seen throughout the neck. Vessels: Visualized vasculature appears patent. Neck spaces: The oropharynx, nasopharynx, and pharynx demonstrate no mucosal lesions. The vocal cords, false vocal cords, pyriform sinuses, epiglottis, vallecula, and tongue base all appear normal. Extramucosal spaces appear unremarkable. Glands: The parotid and submandibular glands appear normal. Thyroid gland demonstrates no significant abnormality. Miscellaneous: Visualized brain and orbits appear normal. Lung apices appear clear. Superficial soft tissues appear normal. Bones: No suspicious bony lesions. Visualized sinuses and mastoids appear unremarkable. Moderate lower cervical spine degenerative change can be seen. IMPRESSION: No imaging explanation is found for this patient's presenting symptoms. No focal mucosal lesions are seen. No enlarged lymph nodes are seen. Additional findings: Moderate lower cervical spine degenerative change Dictated by: Robert Dupree M.D. on 04/18/2023 at 14:13 Approved by: Robert Dupree M.D. on 04/18/2023 at 14:14
[2023-04-18 12:30] LABS: Estimated Glomerular Filt Rate > 60 mL/min (>60)
== END ==
PROVIDERS: Radiology Diagnostic Radiology; PCP Internal Medicine; Referring Provider Otolaryngology; Visit Provider Otolaryngology
DX: R07.0 Pain in throat; K21.9 Gastro-esophageal reflux disease without esophagitis; M47.812 Spondylosis without myelopathy or radiculopathy, cervical region
CPT/HCPCS: 36415; 70491; 82565; Q9967

== ENCOUNTER → 2023-05-02 08:40 | Outpatient (CLI) | payer MEDICARE, SELFPAY ==
[2023-05-02 10:14] LABS: Hematocrit 41.3 % (36-46); Mean Corpuscular HGB Conc 33.9 % (30-36); Mean Corpuscular Hemoglobin 32.1 PG (26-34); Mean Corpuscular Volume 94.6 fL (80-100); Platelet Count 219 X10^3/uL (150-400); Red Blood Cell Count 4.37 X10^6/uL (4.0-5.2); White Blood Cell Count 4.2 X10^3/uL (4.5-11.0)
[2023-05-02 11:08] LABS: Alanine Aminotransferase 26 IU/L (<35); Albumin 4.1 g/dL (3.5-5.0); Albumin Globulin Ratio 1.6 (1.0-2.8); Alkaline Phosphatase 80 U/L (38-126); Aspartate Aminotransferase 34 IU/L (14-36); BUN Creatinine Ratio 22.8 (6-22); Bilirubin Total 0.3 mg/dL (0.2-1.3); Blood Urea Nitrogen 18 mg/dL (7-17); Calcium 9.1 mg/dL (8.4-10.2); Carbon Dioxide 31 mmol/L (22-32); Chloride 101 mmol/L (98-107); Estimated Glomerular Filt Rate > 60 mL/min (>60); Globulin 2.6 g/dL (1.7-4.1); Glucose 93 mg/dL (80-110); HEMOLYSIS < 15 (0-50); Potassium 4.2 mmol/L (3.4-5.1); Sodium 137 mmol/L (137-145); Total Protein 6.7 g/dL (6.3-8.2)
== END ==
PROVIDERS: PCP Internal Medicine; Referring Provider Internal Medicine; Visit Provider Internal Medicine
DX: I10 Essential (primary) hypertension (principal); I48.0 Paroxysmal atrial fibrillation
CPT/HCPCS: 36415; 80053; 85027

== ENCOUNTER → 2023-08-08 09:22 | Outpatient (CLI) | payer MEDICARE, SELFPAY ==
--- NOTE | 2023-08-08 | DI.US.S_ITS ---
PROCEDURE: US CAROTID DOPPLER BI INDICATIONS: BRUIT TECHNIQUE: Color and pulse Doppler interrogation was performed of both carotid systems, with image documentation and velocity measurements. COMPARISON: [facility], CT, CT SOFT TISSUE NECK W CON, 04/18/2023, 13:18. FINDINGS: Stenosis calculations are based on SRU (Society of Radiologists in Ultrasound) criteria. Right side: Brachial blood pressure: 120/66 mm Hg. Common carotid artery peak systolic velocity: 97 cm/sec. Internal carotid artery peak systolic velocity: 118 cm/sec. Internal carotid artery end diastolic velocity: 33 cm/sec. External carotid artery peak systolic velocity: 110 cm/sec. ICA/CCA peak systolic ratio: 1.2. Bass scale imaging description: Minimal plaque Percent internal carotid artery stenosis: Less than 50 %. Vertebral artery: Flow direction is antegrade. Left side: Brachial blood pressure: 116/59 mm Hg. Common carotid artery peak systolic velocity: 106 cm/sec. Internal carotid artery peak systolic velocity: 95 cm/sec. Internal carotid artery end diastolic velocity: 26 cm/sec. External carotid artery peak systolic velocity: 82 cm/sec. ICA/CCA peak systolic ratio: 0.9. Bass scale imaging description: Minimal plaque Percent internal carotid artery stenosis: Less than 50 %. Vertebral artery: Flow direction is antegrade. IMPRESSION: Less than 50 % stenosis of the internal carotid arteries bilaterally. Approved by: Jayjay Pedersen M.D. on 08/08/2023 at 15:00
== END ==
PROVIDERS: PCP Internal Medicine; Referring Provider Internal Medicine Interventional Cardiology; Visit Provider Internal Medicine Interventional Cardiology
DX: R09.89 Other specified symptoms and signs involving the circulatory and respiratory systems (principal); I65.23 Occlusion and stenosis of bilateral carotid arteries
CPT/HCPCS: 93880

== ENCOUNTER → 2023-10-21 08:01 | Outpatient (CLI) | payer MEDICARE, SELFPAY ==
[2023-10-23 09:12] LABS: Creatinine, Urine 55.7 mg/dL (Not Estab.); N-telo/Creat. Ratio 22 (0-89); N-telopeptide 107 nmol BCE (Not Estab.)
== END ==
LOC: LAB 08:03
PROVIDERS: PCP Internal Medicine; Referring Provider Internal Medicine Endocrinology, Diabetes & Metabolism; Visit Provider Internal Medicine Endocrinology, Diabetes & Metabolism
DX: M81.6 Localized osteoporosis [Lequesne] (principal)
CPT/HCPCS: 82523; 82570

== ENCOUNTER → 2023-12-10 09:57 | Outpatient (CLI) | payer MEDICARE, SELFPAY ==
--- NOTE | 2023-12-10 09:59 | DI.MG.S_ITS ---
BILATERAL DIGITAL SCREENING MAMMOGRAM 3D/2D WITH CAD: 12/10/2023 CLINICAL: Routine screening. Family history of breast cancer. Comparison is made to exams dated: 11/22/2022 mammogram, 11/11/2021 mammogram, and 10/31/2020 mammogram - [facility]. Both breasts are heterogeneously dense, which may obscure small masses (category c / 51-75% glandular tissue). Current study was also evaluated with a Computer Aided Detection (CAD) system. No significant masses, calcifications, or other findings are seen in either breast. There has been no significant interval change. IMPRESSION: NEGATIVE There is no mammographic evidence of malignancy. A 1 year screening mammogram is recommended. Based on the Tyrer Cuzick model (a risk assessment model) the patient's lifetime risk is 9.0% and her 10 year risk is 5.0%. According to the ACR, ACS, and NCCN guidelines, an annual breast MRI exam along with mammogram is recommended if the patient's lifetime risk is 20% or greater. This exam was interpreted at Station ID: [id number]. NOTE: For mammograms, a report in lay terms will be sent to the patient. Approximately 15% of breast malignancies will not be visualized mammographically. In the management of a palpable breast mass, a negative mammogram must not discourage biopsy of a clinically suspicious lesion. Electronically Signed By: Jayjay johnson/yariel:12/10/2023 13:56:12 copy to: elliott dunn, [facility] letter sent: Normal Exam ACR BI-RADS Category 1: Negative 3341F
== END ==
PROVIDERS: PCP Internal Medicine; Referring Provider Internal Medicine; Visit Provider Internal Medicine
DX: Z12.31 Encounter for screening mammogram for malignant neoplasm of breast (principal); Z80.3 Family history of malignant neoplasm of breast; R92.333 Mammographic heterogeneous density, bilateral breasts
CPT/HCPCS: 77063; 77067

== ENCOUNTER → 2024-02-24 07:27 | Outpatient (CLI) | payer MEDICARE, SELFPAY ==
[2024-02-24 10:36] LABS: Cholesterol 175 mg/dL (140-199); HDL Cholesterol 70 mg/dL (40-60); LDL Cholesterol Calculated 91 mg/dL (<100); Triglycerides 70 mg/dL (35-150)
== END ==
PROVIDERS: PCP Internal Medicine; Referring Provider Internal Medicine Interventional Cardiology; Visit Provider Internal Medicine Interventional Cardiology
DX: I48.0 Paroxysmal atrial fibrillation (principal)
CPT/HCPCS: 36415; 80061

== ENCOUNTER → 2024-05-18 07:22 | Outpatient (CLI) | payer MEDICARE, SELFPAY ==
[2024-05-18 08:01] LABS: Hematocrit 40.1 % (36-46); Hemoglobin 13.5 g/dL (12.0-16.0); Mean Corpuscular HGB Conc 33.7 % (30-36); Mean Corpuscular Hemoglobin 31.9 PG (26-34); Mean Corpuscular Volume 94.4 fL (80-100); Platelet Count 225 X10^3/uL (150-400); Red Blood Cell Count 4.24 X10^6/uL (4.0-5.2); Red Cell Distribution Width 12.6 % (11.6-14.8); White Blood Cell Count 4.7 X10^3/uL (4.5-11.0)
[2024-05-18 08:35] LABS: Alanine Aminotransferase 25 IU/L (<35); Albumin Globulin Ratio 1.7 (1.0-2.8); Alkaline Phosphatase 80 U/L (38-126); Aspartate Aminotransferase 35 IU/L (14-36); BUN Creatinine Ratio 24.4 (6-22); Bilirubin Total 0.4 mg/dL (0.2-1.3); Blood Urea Nitrogen 19 mg/dL (7-17); Carbon Dioxide 26 mmol/L (22-32); Chloride 106 mmol/L (98-107); Estimated Glomerular Filt Rate > 60 mL/min (>60); Globulin 2.3 g/dL (1.7-4.1); Glucose 86 mg/dL (80-110); HEMOLYSIS < 15 (0-50); Potassium 4.5 mmol/L (3.4-5.1); Sodium 138 mmol/L (137-145); Total Protein 6.3 g/dL (6.3-8.2)
== END ==
PROVIDERS: PCP Internal Medicine; Referring Provider Internal Medicine; Visit Provider Internal Medicine
DX: I48.0 Paroxysmal atrial fibrillation (principal)
CPT/HCPCS: 36415; 80053; 85027

== ENCOUNTER 2024-10-05 07:17 | Emergency (ER) | payer MEDICARE, SELFPAY ==
[2024-10-05] VITALS (25 sets, daily range): BP systolic 113–167; BP diastolic 52–124; PULSE 51–134; RESP 15–37; TEMP 36.4; O2SAT 89–100; BMI 18.3
--- NOTE | 2024-10-05 07:24 | EKG_ITS ---
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
--- NOTE | 2024-10-05 07:31 | EKG_ITS ---
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
--- NOTE | 2024-10-05 07:32 | ED_ITS ---
HPI - Arrhythmia/Palpitations General Chief Complaint: Arrhythmia/Palpitations Stated Complaint: afib Time Seen by Provider: 10/05/24 07:24 Source: patient Mode of arrival: Ambulatory History of Present Illness HPI narrative: Patient is a 68-year-old female history of paroxysmal atrial fibrillation on Eliquis presenting today with palpitations. She reports that she woke up this morning does not feeling quite right he felt her heart pounding looked on an raven on her phone it told her she was in atrial fibrillation and she came here. Reports feeling normal last night and yesterday. She has been cardioverted once before. Denies any other symptoms Related Data Home Medications Medication Instructions Recorded Confirmed cholecalciferol (vitamin D3) 50 50 mcg PO DAILY 01/26/22 05/13/24 mcg (2,000 unit) capsule fexofenadine 180 mg tablet 180 mg PO DAILY 01/26/22 05/13/24 (Erika Allergy) multivitamin 1 tab PO DAILY 01/26/22 05/13/24 apixaban 5 mg tablet (Eliquis) 5 mg PO BID 04/30/22 05/13/24 pseudoephedrine HCl 30 mg tablet 30 mg PO BID 09/05/22 05/13/24 (Sudafed) Previous Rx's Medication Instructions Recorded azelastine 137 mcg (0.1 %) nasal 1 spray intranasal BID #30 mL 12/24/23 spray metoprolol tartrate 25 mg tablet 25 mg PO BID #180 tabs 02/27/24 rosuvastatin 10 mg tablet 10 mg PO DAILY #90 tabs 04/09/24 amlodipine 5 mg tablet 5 mg PO DAILY #90 tabs 05/13/24 methocarbamol 500 mg tablet 500 mg PO TID #30 tabs 05/13/24 Allergies Allergy/AdvReac Type Severity Reaction Status Date / Time Sulfa (Sulfonamide Allergy Unknown Rash Verified 05/13/24 15:33 Antibiotics) [SULFA (SULFONAMIDE ANTIBIOTICS)] valsartan AdvReac Mild Nausea Verified 05/13/24 15:33 Patient History Medical History GERD without esophagitis Anticoagulation management encounter Paroxysmal atrial fibrillation Essential hypertension Mixed hyperlipidemia Chronic sinusitis Allergic rhinitis Vision disorder Osteoarthritis (~2017) Osteoporosis (~2016) Fractures (~1993) Mumps (~1959) Measles (~1961) Chicken pox (~1958) Surgical History Anesthesia Trigger thumb (~2018) History of gastric surgery (~2017) History of dilatation and curettage (~2007) History of eye surgery (~2005) History of skin graft (~1975) Family History Father Prostate cancer Lung cancer Hypertension Hyperlipidemia Mother Hypertension Hyperlipidemia Stroke Brother Parkinson's disease Brother Mental health problem Grandfather Parkinson's disease Grandfather History of emphysema Grandmother Dementia Social History Smoking Status: Former smoker Smoking Status: Former smoker Exam Initial Vital Signs Initial Vital Signs: Vital Signs Pulse Rate 106 H 10/05/24 07:24 Respiratory Rate 29 H 10/05/24 07:24 Pulse Oximetry 100 10/05/24 07:24 GENERAL: Alert pleasant well-appearing 60-year-old female and in [no acute] distress. HEENT: Head atraumatic,EOMI, pupils reactive, face symmetric, [moist] mucous membranes CARDIOVASCULAR: Irregularly regular RESPIRATORY: Clear breath sounds bilaterally no wheezes rales or rhonchi EXTREMITIES: Normal range of motion, no clubbing or edema. Neurovascularly intact NEUROLOGICAL: Alert and oriented x4.Normal gait and speech. Cranial nerves II through XII grossly intact. SKIN: Warm, dry, no laceration, no petechiae, no rashes or lesions. Procedures Cardioversion Time of Cardioversion: 08:46 Consent Signed: Yes Indication: AFib with RVR Stability: Stable Number of attempts (shocks): 1 Joules used: 120 Cardiac rhythm post-cardioversion: Normal sinus rhythm Procedural Sedation Consent signed: Yes Indication: cardioversion ASA Class: I Mallampati Airway Classification: Class I IV Propofol dose (mg): 50 Intraservice time/total sedation time (min): 12 ED Sedation Level: Moderate (Concious) Patient Tolerated Procedure: Well and No complications Course Orders Ordered: Discontinued Medications Diltiazem HCl (Diltiazem 25 Mg/5 Ml Sdv) 10 mg IV NOW ONE Stop: 10/05/24 07:32 Last Admin: 10/05/24 07:52 Dose: 10 mg Documented By: ERA Propofol (Propofol 200 Mg/20 Ml Vial) 50 mg 1 mg/kg (50 mg) IV NOW ONE Stop: 10/05/24 07:32 Last Admin: 10/05/24 08:40 Dose: 50 mg Documented By: ERA Vital Signs Vital signs: Vital Signs - 8 hr 10/05/24 07:24 10/05/24 07:26 10/05/24 07:30 Temperature 97.5 F L Pulse Rate 106 H 125 H Respiratory Rate 29 H 18 Blood Pressure 142/78 H 167/107 H Pulse Oximetry 100 100 Oxygen Delivery Method Room Air 10/05/24 07:30 10/05/24 07:52 10/05/24 07:53 Temperature Pulse Rate 133 H 122 H Respiratory Rate 30 H Blood Pressure 133/78 133/78 Pulse Oximetry 100 Oxygen Delivery Method 10/05/24 07:53 10/05/24 07:55 10/05/24 07:55 Temperature Pulse Rate 134 H 125 H Respiratory Rate 21 22 Blood Pressure 135/85 Pulse Oximetry 99 99 Oxygen Delivery Method 10/05/24 08:00 10/05/24 08:00 10/05/24 08:05 Temperature Pulse Rate 87 80 Respiratory Rate 15 17 Blood Pressure 123/72 Pulse Oximetry 100 100 Oxygen Delivery Method 10/05/24 08:05 10/05/24 08:10 10/05/24 08:10 Temperature Pulse Rate 84 Respiratory Rate 17 Blood Pressure 130/61 129/58 L Pulse Oximetry 99 Oxygen Delivery Method MDM - Arrhythmia/Palpitations Lab Data 10/05/24 07:38 10/05/24 07:38 Labs: Lab Results 10/05/24 Range/Units 07:38 WBC 5.5 (4.5-11.0) X10^3/uL RBC 4.85 (4.0-5.2) X10^6/uL Hgb 15.6 (12.0-16.0) g/dL Hct 46.0 (36-46) % MCV 94.9 (80-100) fL MCH 32.1 (26-34) PG MCHC 33.8 (30-36) % RDW 12.5 (11.6-14.8) % Plt Count 239 (150-400) X10^3/uL Neut % (Auto) 50.5 (50-75) % Lymph % (Auto) 34.4 (25-40) % [place] % (Auto) 10.9 (3-14) % Eos % (Auto) 3.2 (2-4) % Baso % (Auto) 1.0 (0-2) % Neut # (Auto) 2800 (0581-7255) /uL Lymph # (Auto) 1900 (9859-6147) /uL [place] # (Auto) 600 (0-900) /uL Eos # (Auto) 200 (0-450) /uL Baso # (Auto) 100 (0-100) /uL Sodium 141 (137-145) mmol/L Potassium 3.4 (3.4-5.1) mmol/L Chloride 106 (98-107) mmol/L Carbon Dioxide 28 (22-32) mmol/L BUN 18 H (7-17) mg/dL Creatinine 0.76 (0.52-1.04) mg/dL Estimated GFR > 60 (>60) mL/min BUN/Creatinine Ratio 23.7 H (6-22) Glucose 103 (80-110) mg/dL Calcium 9.3 (8.4-10.2) mg/dL Magnesium 2.1 (1.6-2.3) mg/dL Total Bilirubin 0.3 (0.2-1.3) mg/dL AST 38 H (14-36) IU/L ALT 27 (<35) IU/L Alkaline Phosphatase 84 (38-126) U/L Total Creatine Kinase 66 (30-135) U/L Troponin I < 0.012 (0.01-0.034) ng/mL Total Protein 7.8 (6.3-8.2) g/dL Albumin 4.8 (3.5-5.0) g/dL Globulin 3.0 (1.7-4.1) g/dL Albumin/Globulin Ratio 1.6 (1.0-2.8) Lipase 122 (23-300) U/L Point of Care Testing Test Results Not applicable Imaging Data Chest x-ray: Radiologist's Impresson: PROCEDURE: XR CHEST 1V INDICATIONS: chest pain TECHNIQUE: One view of the chest was acquired. COMPARISON: [facility], CR, XR CHEST 1V, 04/02/2022, 21:51. FINDINGS: Surgical changes and devices: Transcutaneous pacemaker Lungs and pleura: Lungs are clear. No pleural effusions or pneumothorax. Mediastinum: Mediastinal contours appear normal. Heart size is normal. Bones and chest wall: No suspicious bony lesions. Overlying soft tissues appear unremarkable. IMPRESSION: No acute cardiopulmonary abnormality is seen. Dictated by: Bret Luis M.D. on 10/05/2024 at 8:16 ECG Data Attestation: I personally reviewed and interpreted this ECG as follows: Prior ECG tracings: available for review Interpretation: Atrial fibrillation rate 118, ST depression noted in lead 2 miles artifact similar to previous EKGs in 2021 MDM Narrative Medical decision making narrative: MDM CC: Heart palpitations Complicating co-morbidities: Paroxysmal atrial fibrillation on Eliquis Medical records reviewed: Previous PCP visits reviewed Differential considered: Atrial fibrillation, atrial flutter Exam documented above, pertinent findings include: Alert pleasant well- appearing stable 60-year-old female irregular be irregular heart rate no peripheral edema Lab Test results independently reviewed as above. Pertinent findings: No clinical significant abnormalities she has no leukocytosis anemia electrolyte abnormalities MEÑO, troponin is negative, magnesium 2.1 Independently reviewed EKG as above AFib with RVR Repeat shows a sinus rhythm Imaging studies independently reviewed: Chest x-ray no acute cardiopulmonary process Treatments: Diltiazem 10, propofol 50 Re-evaluations: Patient cardioverted easily without complication. Normal sinus rhythm Discussion: 68-year-old female presenting today with atrial fibrillation no contraindications for cardioversion she takes Eliquis daily it was likely with a 24 hour period to safe to cardiovert. She was overall feeling much better after being cardioverted blood work is overall reassuring Discharge Plan Departure Patient Disposition: Home Clinical Impression: Atrial fibrillation with rapid ventricular response Instructions: DI for Atrial Fibrillation Activity Restrictions/Additional Instructions: *You have been diagnosed with atrial fibrillation *What to do: At this time continue taking Eliquis. Please follow-up with your leadership development consultant *Continue to take medications as directed *Follow up with your primary care provider in 2-3 days or call [phone] *Return to ER if you should have increasing chest pain palpitations or any new, worsening or concerning symptoms Prescriptions: No Action azelastine 137 mcg (0.1 %) aerosol,spray 1 spray intranasal BID Qty: 30 6RF Rx Instructions: administer into each nostril metoprolol tartrate 25 mg tablet 25 mg PO BID Qty: 180 3RF rosuvastatin 10 mg tablet 10 mg PO DAILY Qty: 90 3RF Eliquis 5 mg tablet 5 mg PO BID fexofenadine [Erika Allergy] 180 mg tablet 180 mg PO DAILY multivitamin Tablet 1 tab PO DAILY cholecalciferol (vitamin D3) 50 mcg (2,000 unit) capsule 50 mcg PO DAILY pseudoephedrine HCl [Sudafed] 30 mg tablet 30 mg PO BID methocarbamol 500 mg tablet 500 mg PO TID Qty: 30 1RF Rx Instructions: 1-2 tablets three times daily as needed for spasms/pain amlodipine 5 mg tablet 5 mg PO DAILY Qty: 90 3RF Referrals: Romeo Long MD [Primary Care Provider] - Stand Alone Forms: Patient Portal/API/Survey
[2024-10-05 07:49] LABS: Add Manual Diff / Slide Review NO; Basophils Absolute Auto 100 /uL (0-100); Eosinophils Absolute Auto 200 /uL (0-450); Eosinophils Percent Auto 3.2 % (2-4); Hemoglobin 15.6 g/dL (12.0-16.0); Lymphocytes Absolute Auto 1900 /uL (1100-4500); Lymphocytes Percent Auto 34.4 % (25-40); Mean Corpuscular HGB Conc 33.8 % (30-36); Mean Corpuscular Hemoglobin 32.1 PG (26-34); Mean Corpuscular Volume 94.9 fL (80-100); Monocytes Absolute Auto 600 /uL (0-900); Monocytes Percent Auto 10.9 % (3-14); Neutrophils Absolute Auto 2800 /uL (1500-7000); Neutrophils Percent Auto 50.5 % (50-75); Platelet Count 239 X10^3/uL (150-400); Red Blood Cell Count 4.85 X10^6/uL (4.0-5.2); Red Cell Distribution Width 12.5 % (11.6-14.8); White Blood Cell Count 5.5 X10^3/uL (4.5-11.0)
[2024-10-05] MEDS: dilTIAZem 25 MG/5 ML SDV 10 MG IV (07:52)
[2024-10-05 08:00] LABS: Alanine Aminotransferase 27 IU/L (<35); Albumin 4.8 g/dL (3.5-5.0); Albumin Globulin Ratio 1.6 (1.0-2.8); Alkaline Phosphatase 84 U/L (38-126); Aspartate Aminotransferase 38 IU/L (14-36); BUN Creatinine Ratio 23.7 (6-22); Bilirubin Total 0.3 mg/dL (0.2-1.3); Blood Urea Nitrogen 18 mg/dL (7-17); Calcium 9.3 mg/dL (8.4-10.2); Carbon Dioxide 28 mmol/L (22-32); Chloride 106 mmol/L (98-107); Creatine Kinase 66 U/L (30-135); Estimated Glomerular Filt Rate > 60 mL/min (>60); Glucose 103 mg/dL (80-110); HEMOLYSIS < 15 (0-50); Lipase 122 U/L (23-300); Magnesium 2.1 mg/dL (1.6-2.3); Potassium 3.4 mmol/L (3.4-5.1); Sodium 141 mmol/L (137-145); Total Protein 7.8 g/dL (6.3-8.2)
[2024-10-05 08:11] LABS: Troponin I < 0.012 ng/mL (0.01-0.034)
[2024-10-05] MEDS: propofoL 200 MG/20 ML VIAL 50 MG IV (08:40)
--- NOTE | 2024-10-05 09:03 | PC.NURSE ---
[address]40 time out called by Dr Méndez. RN, RT & Doc at bedside & pt connected to Zoll monitor for cardioversion. 50 mg propofol pushed by dr méndez. Monitor synced and charged to 120 joules. 1 shock delivered. 0842 Pt placed on 2L NC by RT. pt converted to NSR. 0847 Pt back on RA. A&Ox4. moves all extremities. States that she feels much better. Please see procedural sedation documentation for Jake score and q5 procedural vital signs.
== END 2024-10-05 09:26 | disposition home or self-care (01) ==
PROVIDERS: Emergency Provider Emergency Medicine; PCP Internal Medicine
DX: I48.20 Chronic atrial fibrillation, unspecified (principal); Z79.01 Long term (current) use of anticoagulants; R07.9 Chest pain, unspecified
CPT/HCPCS: 71045; 80053; 82550; 83690; 83735; 84484; 85025; 92960; 93005; 96374; 99152; 99285; J2704

== ENCOUNTER 2024-10-19 03:28 | Emergency (ER) | payer MEDICARE, SELFPAY ==
[2024-10-19] VITALS (20 sets, daily range): BP systolic 109–174; BP diastolic 53–123; PULSE 51–134; RESP 17–32; TEMP 36.9; O2SAT 96–100; BMI 18.3
--- NOTE | 2024-10-19 03:32 | DI.RAD.S_ITS ---
PROCEDURE: XR CHEST 1V INDICATIONS: chest pain TECHNIQUE: One view of the chest was acquired. COMPARISON: [facility], CR, XR CHEST 1V, 10/05/2024, 7:46. FINDINGS: Surgical changes and devices: None. Lungs and pleura: Lungs are clear. No pleural effusions or pneumothorax. Mediastinum: Mediastinal contours appear normal. Heart size is normal. Bones and chest wall: No suspicious bony lesions. Overlying soft tissues appear unremarkable. IMPRESSION: No acute cardiopulmonary pathology. No discrepancies. Dictated by: Rudy Stoner M.D. on 10/19/2024 at 8:05 Approved by: Rudy Stoner M.D. on 10/19/2024 at 8:05
--- NOTE | 2024-10-19 03:37 | EKG_ITS ---
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
--- NOTE | 2024-10-19 03:38 | ED.GENADULT ---
HPI - General Adult General Chief complaint: Arrhythmia/Palpitations Stated complaint: afib Time Seen by Provider: 10/19/24 03:32 History of Present Illness HPI narrative: 68-year-old female with history of paroxysmal atrial fibrillation, for which she takes chronic Eliquis anticoagulation, denies missed doses, history of prior cardioversion earlier this month, and a prior cardioversion 2-1/2 years ago at time of diagnosis, 2 hours ago felt that she went into atrial fibrillation with rapid rate, some degree of some shortness of breath, denies chest pain. Requests cardioversion. Denies recent illness symptoms. No nausea vomiting or diarrhea. No change in medication. Related Data Home Medications Medication Instructions Recorded Confirmed cholecalciferol (vitamin D3) 50 50 mcg PO DAILY 01/26/22 10/13/24 mcg (2,000 unit) capsule fexofenadine 180 mg tablet 180 mg PO DAILY 01/26/22 10/13/24 (Erika Allergy) multivitamin 1 tab PO DAILY 01/26/22 10/13/24 apixaban 5 mg tablet (Eliquis) 5 mg PO BID 04/30/22 10/13/24 pseudoephedrine HCl 30 mg tablet 30 mg PO BID 09/05/22 10/13/24 (Sudafed) Previous Rx's Medication Instructions Recorded azelastine 137 mcg (0.1 %) nasal 1 spray intranasal BID #30 mL 12/24/23 spray metoprolol tartrate 25 mg tablet 25 mg PO BID #180 tabs 02/27/24 rosuvastatin 10 mg tablet 10 mg PO DAILY #90 tabs 04/09/24 amlodipine 5 mg tablet 5 mg PO DAILY #90 tabs 05/13/24 methocarbamol 500 mg tablet 500 mg PO TID #30 tabs 05/13/24 Allergies Allergy/AdvReac Type Severity Reaction Status Date / Time Sulfa (Sulfonamide Allergy Unknown Rash Verified 10/13/24 09:38 Antibiotics) [SULFA (SULFONAMIDE ANTIBIOTICS)] valsartan AdvReac Mild Nausea Verified 10/13/24 09:38 Patient History Medical History GERD without esophagitis Anticoagulation management encounter Paroxysmal atrial fibrillation Essential hypertension Mixed hyperlipidemia Chronic sinusitis Allergic rhinitis Vision disorder Osteoarthritis (~2017) Osteoporosis (~2016) Fractures (~1993) Mumps (~1959) Measles (~1961) Chicken pox (~1958) Surgical History Anesthesia Trigger thumb (~2018) History of gastric surgery (~2016) History of dilatation and curettage (~2007) History of eye surgery (~2005) History of skin graft (~1975) Family History Father Prostate cancer Lung cancer Hypertension Hyperlipidemia Mother Hypertension Hyperlipidemia Stroke Brother Parkinson's disease Brother Mental health problem Grandfather Parkinson's disease Grandfather History of emphysema Grandmother Dementia Social History Smoking Status: Former smoker Smoking Status: Former smoker Exam Narrative Exam Narrative: GENERAL: Well-developed patient, in mild distress. HEAD: Atraumatic. Normocephalic. EYES: Pupils equal round and reactive. Extraocular motions intact. No scleral icterus. No injection or drainage. ENT: Nose without bleeding, purulent drainage. Throat without erythema, tonsillar hypertrophy or exudate. Airway patent. NECK: Trachea midline. Non tender CARDIOVASCULAR: Fast rate irregularly irregular rhythm, without obvious murmurs, gallops, or rubs. RESPIRATORY: Clear to auscultation. Breath sounds equal bilaterally. No wheezes, rales, or rhonchi. GASTROINTESTINAL: Abdomen soft, non-tender, nondistended. EXTREMITIES: No edema or joint tenderness. BACK: Nontender without deformity or crepitance. No flank tenderness. NEURO: AOx3. Motor functions grossly nonfocal SKIN: No rash or erythema of visible areas Initial Vital Signs Initial Vital Signs: Vital Signs Temperature 98.4 F 10/19/24 03:32 Pulse Rate 93 H 10/19/24 03:32 Respiratory Rate 20 10/19/24 03:32 Blood Pressure 174/65 H 10/19/24 03:32 Pulse Oximetry 99 10/19/24 03:32 Oxygen Delivery Method Room Air 10/19/24 03:32 Procedures Cardioversion Time of Cardioversion: 04:37 Consent Signed: Yes Indication: Paroxysmal atrial fibrillation with rapid ventricular response rate Stability: Stable Number of attempts (shocks): 1 Joules used: 120 Cardiac rhythm post-cardioversion: Sinus bradycardia then normal sinus rhythm post procedure conversion Notice:: See separate note for procedural sedation Procedural Sedation Time of procedure: 04:34 Consent signed: Yes Time out performed: Yes Indication: cardioversion Presedation Evaluation: Previous experience recent to same IV propofol agent for sedation prior to same procedure cardioversion, normotensive ASA Class: I Mallampati Airway Classification: Class I Preparation: desk monitor applied, pulse oximeter, capnometry used, suction/airway equipment at bedside and IV secured IV Propofol dose (mg): 50 ED Sedation Level: Moderate (Concious) Patient Tolerated Procedure: Well Complications: none Additional Comments: Tolerated well, returned to preprocedure baseline mental status and neuro function Course Orders Ordered: ED Orders 10/19/24 03:29 EKG-12 Lead Stat 10/19/24 03:32 XR chest 1V Stat 10/19/24 03:55 Complete Blood Count AUTO DIFF Stat Comprehensive Metabolic Panel Stat Lipase Stat Troponin & CK Cardiac Panel Stat Discontinued Medications Diltiazem HCl (Diltiazem 25 Mg/5 Ml Sdv) 10 mg IV NOW ONE Stop: 10/19/24 04:06 Last Admin: 10/19/24 04:13 Dose: 10 mg Documented By: CHARLETTE Etomidate (Etomidate 2 Mg/Ml 10 Ml Vial) 10 mg IV NOW ONE Stop: 10/19/24 03:59 Last Admin: 10/19/24 04:15 Dose: Not Given Documented By: CHARLETTE Sodium Chloride (Normal Saline 0.9%) 1,000 mls @ 150 mls/hr IV CONT PAVAN Last Infusion: 10/19/24 05:30 Dose: Infused Documented By: Admin: 10/19/24 04:08 Dose: 150 mls/hr Documented By: CHARLETTE Propofol (Propofol 200 Mg/20 Ml Vial) 50 mg 1 mg/kg (50 mg) IV NOW ONE Stop: 10/19/24 04:16 Last Admin: 10/19/24 04:18 Dose: 50 mg Documented By: CHARLETTE Vital Signs Vital signs: Vital Signs - 8 hr 10/19/24 03:32 10/19/24 03:35 10/19/24 03:36 Temperature 98.4 F Pulse Rate 93 H 116 H Respiratory Rate 20 Blood Pressure 174/65 H 156/123 H Pulse Oximetry 99 96 Oxygen Delivery Method Room Air 10/19/24 03:36 10/19/24 03:37 10/19/24 03:37 Temperature Pulse Rate 98 H 98 H Respiratory Rate Blood Pressure 174/65 H Pulse Oximetry 100 99 Oxygen Delivery Method 10/19/24 03:40 10/19/24 03:45 10/19/24 03:50 Temperature Pulse Rate 116 H 130 H 130 H Respiratory Rate 31 H 24 Blood Pressure Pulse Oximetry 100 99 98 Oxygen Delivery Method 10/19/24 03:55 10/19/24 04:00 10/19/24 04:05 Temperature Pulse Rate 113 H 105 H 113 H Respiratory Rate 28 H 21 22 Blood Pressure Pulse Oximetry 98 98 98 Oxygen Delivery Method 10/19/24 04:10 10/19/24 04:15 10/19/24 04:19 Temperature Pulse Rate 131 H 133 H Respiratory Rate 32 H 23 Blood Pressure 139/83 Pulse Oximetry 100 Oxygen Delivery Method 10/19/24 04:19 10/19/24 04:20 10/19/24 04:25 Temperature Pulse Rate 118 H 134 H 85 Respiratory Rate 21 17 21 Blood Pressure Pulse Oximetry 99 Oxygen Delivery Method 10/19/24 04:30 10/19/24 04:30 10/19/24 04:35 Temperature Pulse Rate 101 H 53 L Respiratory Rate 28 H 18 Blood Pressure 133/60 Pulse Oximetry 99 96 Oxygen Delivery Method 10/19/24 04:35 10/19/24 04:40 10/19/24 04:40 Temperature Pulse Rate 51 L Respiratory Rate 22 Blood Pressure 109/53 L 119/56 L Pulse Oximetry 98 Oxygen Delivery Method Room Air 10/19/24 04:45 10/19/24 04:45 Temperature Pulse Rate 53 L Respiratory Rate 30 H Blood Pressure 120/56 L Pulse Oximetry 98 Oxygen Delivery Method Room Air Medical Decision Making Lab Data Lab results reviewed: Yes I reviewed the patient's lab results. Lab results narrative: White blood cell count 5700, hemoglobin 14.5, platelets adequate. Basic metabolic panel unremarkable. Liver functions normal. Lipase normal. Troponin negative/unmeasurable. 10/19/24 03:55 10/19/24 03:55 Labs: Lab Results 10/19/24 Range/Units 03:55 WBC 5.7 (4.5-11.0) X10^3/uL RBC 4.59 (4.0-5.2) X10^6/uL Hgb 14.5 (12.0-16.0) g/dL Hct 43.5 (36-46) % MCV 94.7 (80-100) fL MCH 31.6 (26-34) PG MCHC 33.4 (30-36) % RDW 12.8 (11.6-14.8) % Plt Count 232 (150-400) X10^3/uL Neut % (Auto) 43.4 L (50-75) % Lymph % (Auto) 41.4 H (25-40) % [place] % (Auto) 10.3 (3-14) % Eos % (Auto) 3.8 (2-4) % Baso % (Auto) 1.1 (0-2) % Neut # (Auto) 2500 (7252-2283) /uL Lymph # (Auto) 2400 (9283-4575) /uL [place] # (Auto) 600 (0-900) /uL Eos # (Auto) 200 (0-450) /uL Baso # (Auto) 100 (0-100) /uL Sodium 140 (137-145) mmol/L Potassium 4.0 (3.4-5.1) mmol/L Chloride 105 (98-107) mmol/L Carbon Dioxide 24 (22-32) mmol/L BUN 22 H (7-17) mg/dL Creatinine 0.75 (0.52-1.04) mg/dL Estimated GFR > 60 (>60) mL/min BUN/Creatinine Ratio 29.3 H (6-22) Glucose 101 (80-110) mg/dL Calcium 9.3 (8.4-10.2) mg/dL Total Bilirubin 0.3 (0.2-1.3) mg/dL AST 44 H (14-36) IU/L ALT 34 (<35) IU/L Alkaline Phosphatase 82 (38-126) U/L Total Creatine Kinase 70 (30-135) U/L Troponin I < 0.012 (0.01-0.034) ng/mL Total Protein 7.7 (6.3-8.2) g/dL Albumin 4.7 (3.5-5.0) g/dL Globulin 3.0 (1.7-4.1) g/dL Albumin/Globulin Ratio 1.6 (1.0-2.8) Lipase 147 (23-300) U/L Point of Care Testing Test Results Negative Point of care testing: Point of Care Testing Test Results Negative ECG Data Attestation: I personally reviewed and interpreted this ECG as follows: Interpretation: 0337, atrial fibrillation with rapid ventricular response 101, no obvious ST segment elevation changes. QRS 88, QTC 471. 0437, sinus bradycardia with rate of 52. No obvious ST segment elevation or depression changes. VT 156, QRS 84, QTC 442. MDM Narrative Medical decision making narrative: 68-year-old female with history of paroxysmal atrial fibrillation, presenting with AFib and rapid ventricular response, similar to her presentation a couple of weeks ago when she was cardioverted here with 120 joules after 10 mg IV diltiazem. She would like the same regimen treatment. Atrial fibrillation with rapid ventricular response, on monitor rate is mostly 110-120s. Systolic blood pressure 170 noted. IV diltiazem 10 mg bolus. She has been taking her Eliquis anticoagulation, no missed doses, had dose yesterday. She prefers to have cardioversion, we will consent for procedure. Cardioversion successful, single attempt, after IV propofol. Sinus rhythm on conversion, returned to preprocedure mental status and neuro function. See separate procedure notes for procedural sedation and for cardioversion. Chest x-ray single view. Impression: ?No acute cardiopulmonary abnormality is identified. ? See tele radiology report Screening labs unremarkable, electrolytes unremarkable. Discharged home with family. Follow up with Cardiology advised, fairly recent cardioversion 2 weeks ago, consider other therapies to help prevent recurrent need for cardioversions. Home with family, stable, improved. Return precautions discussed. Discharge Plan Departure Patient Disposition: Home Clinical Impression: Paroxysmal atrial fibrillation with rapid ventricular response Instructions: DI for Atrial Fibrillation Activity Restrictions/Additional Instructions: Paroxysmal atrial fibrillation, with rapid ventricular response rate, similar presentation about 2 weeks ago when you had successful cardioversion, requests for cardioversion. You had been taking your Eliquis blood pressure medications without any recent missed doses. Similar agents were prepared with IV propofol used, same strength of cardioversion, single shock, successful conversion to sinus rhythm. Tolerated well. Follow up with your risk compliance manager, given frequency of recent cardioversions could consider Cardiology consultation to see if other therapeutic interventions could be useful. For now can continue chronic medications. Follow up with your risk compliance manager, call office later today Saturday during open hours for close follow up appointment. Return to this/nearest emergency department for any change worsening symptoms or any concerns prior Prescriptions: No Action azelastine 137 mcg (0.1 %) aerosol,spray 1 spray intranasal BID Qty: 30 6RF Rx Instructions: administer into each nostril metoprolol tartrate 25 mg tablet 25 mg PO BID Qty: 180 3RF rosuvastatin 10 mg tablet 10 mg PO DAILY Qty: 90 3RF Eliquis 5 mg tablet 5 mg PO BID fexofenadine [Erika Allergy] 180 mg tablet 180 mg PO DAILY multivitamin Tablet 1 tab PO DAILY cholecalciferol (vitamin D3) 50 mcg (2,000 unit) capsule 50 mcg PO DAILY pseudoephedrine HCl [Sudafed] 30 mg tablet 30 mg PO BID methocarbamol 500 mg tablet 500 mg PO TID Qty: 30 1RF Rx Instructions: 1-2 tablets three times daily as needed for spasms/pain amlodipine 5 mg tablet 5 mg PO DAILY Qty: 90 3RF Referrals: Romeo Long MD [Primary Care Provider] - Stand Alone Forms: Patient Portal/API/Survey
[2024-10-19] MEDS: SODIUM CHLORIDE 0.9% 1,000 ML 150 ML IV (04:08)
[2024-10-19] MEDS: dilTIAZem 25 MG/5 ML SDV 10 MG IV (04:13)
[2024-10-19 04:14] LABS: Add Manual Diff / Slide Review NO; Basophils Absolute Auto 100 /uL (0-100); Basophils Percent Auto 1.1 % (0-2); Eosinophils Absolute Auto 200 /uL (0-450); Eosinophils Percent Auto 3.8 % (2-4); Hematocrit 43.5 % (36-46); Hemoglobin 14.5 g/dL (12.0-16.0); Lymphocytes Absolute Auto 2400 /uL (1100-4500); Lymphocytes Percent Auto 41.4 % (25-40); Mean Corpuscular HGB Conc 33.4 % (30-36); Mean Corpuscular Hemoglobin 31.6 PG (26-34); Mean Corpuscular Volume 94.7 fL (80-100); Monocytes Absolute Auto 600 /uL (0-900); Monocytes Percent Auto 10.3 % (3-14); Neutrophils Absolute Auto 2500 /uL (1500-7000); Neutrophils Percent Auto 43.4 % (50-75); Platelet Count 232 X10^3/uL (150-400); Red Blood Cell Count 4.59 X10^6/uL (4.0-5.2); Red Cell Distribution Width 12.8 % (11.6-14.8); White Blood Cell Count 5.7 X10^3/uL (4.5-11.0)
[2024-10-19] MEDS: propofoL 200 MG/20 ML VIAL 50 MG IV (04:18)
[2024-10-19 04:27] LABS: Albumin 4.7 g/dL (3.5-5.0); Albumin Globulin Ratio 1.6 (1.0-2.8); BUN Creatinine Ratio 29.3 (6-22); Blood Urea Nitrogen 22 mg/dL (7-17); Calcium 9.3 mg/dL (8.4-10.2); Carbon Dioxide 24 mmol/L (22-32); Estimated Glomerular Filt Rate > 60 mL/min (>60); Glucose 101 mg/dL (80-110); HEMOLYSIS < 15 (0-50); Lipase 147 U/L (23-300); Sodium 140 mmol/L (137-145); Total Protein 7.7 g/dL (6.3-8.2)
[2024-10-19 04:31] LABS: Alanine Aminotransferase 34 IU/L (<35); Alkaline Phosphatase 82 U/L (38-126); Aspartate Aminotransferase 44 IU/L (14-36); Bilirubin Total 0.3 mg/dL (0.2-1.3); Chloride 105 mmol/L (98-107); Creatine Kinase 70 U/L (30-135)
--- NOTE | 2024-10-19 04:37 | EKG_ITS ---
[id number] [address] Test Date: 2024-10-19 Pat Name: Mani Elder Department: Room: Gender: Female Web Support Engineer: TIM : 1955 Requested By: Order Number: [id number] Reading MD: Edward Ramires Measurements Intervals [place] Rate: 52 P: 64 AR: 156 QRS: -11 QRSD: 84 T: 89 QT: 476 QTc: 442 Interpretive Statements Sinus bradycardia Low voltage QRS Septal infarct , age undetermined ST & T wave abnormality, consider lateral ischemia Electronically Signed On 10-19-2024 18:20:18 PST by Edward Ramires
[2024-10-19 04:39] LABS: Troponin I < 0.012 ng/mL (0.01-0.034)
== END 2024-10-19 05:25 | disposition home or self-care (01) ==
PROVIDERS: Emergency Provider Emergency Medicine; PCP Internal Medicine
DX: I48.0 Paroxysmal atrial fibrillation (principal); Z79.01 Long term (current) use of anticoagulants; Z88.2 Allergy status to sulfonamides; R00.1 Bradycardia, unspecified
CPT/HCPCS: 36415; 71045; 80053; 82550; 83690; 84484; 85025; 92960; 93005; 96361; 96374; 99285; J2704

== ENCOUNTER 2024-11-09 09:29 | Emergency (ER) | payer MEDICARE, SELFPAY ==
--- NOTE | 2024-11-09 09:34 | ED.ARRPALP ---
HPI - Arrhythmia/Palpitations General Chief Complaint: Arrhythmia/Palpitations Stated Complaint: Per patient/ AFIB Time Seen by Provider: 11/09/24 09:34 History of Present Illness HPI narrative: 68-year-old female with a past medical history of paroxysmal AFib on Eliquis, hypertension, with a history of cardioversion comes into the ED from home for evaluation of palpitations. She states that she woke up feeling palpitations, states that she did take 50 mg of metoprolol 1 hour prior to arrival, she states that by the time she arrived here in the emergency department her symptoms have completely resolved. Patient states that she has an appointment today with her primary care doctor as well as a commercial credit portfolio manager appointment next week for scheduling an ablation. She states that she has a history of needing cardioversions in the past. Has been compliant with all her medications otherwise. She is not complaining of any other symptoms such as headache visual disturbances chest pain shortness breath fever chills nausea vomiting abdominal pain or any other GI/ symptoms time. Related Data Home Medications Medication Instructions Recorded Confirmed cholecalciferol (vitamin D3) 50 50 mcg PO DAILY 01/26/22 10/27/24 mcg (2,000 unit) capsule fexofenadine 180 mg tablet 180 mg PO DAILY 01/26/22 10/27/24 (Erika Allergy) multivitamin 1 tab PO DAILY 01/26/22 10/27/24 apixaban 5 mg tablet (Eliquis) 5 mg PO BID 04/30/22 10/27/24 Previous Rx's Medication Instructions Recorded azelastine 137 mcg (0.1 %) nasal 1 spray intranasal BID #30 mL 12/24/23 spray metoprolol tartrate 25 mg tablet 25 mg PO BID #180 tabs 02/27/24 rosuvastatin 10 mg tablet 10 mg PO DAILY #90 tabs 04/09/24 amlodipine 5 mg tablet 5 mg PO DAILY #90 tabs 05/13/24 methocarbamol 500 mg tablet 500 mg PO TID #30 tabs 05/13/24 Allergies Allergy/AdvReac Type Severity Reaction Status Date / Time Sulfa (Sulfonamide Allergy Unknown Rash Verified 10/27/24 14:19 Antibiotics) [SULFA (SULFONAMIDE ANTIBIOTICS)] valsartan AdvReac Mild Nausea Verified 10/27/24 14:19 Review of Systems Review of Systems Narrative: General: Denies fever, chills, weight loss HEENT: Denies headache, eye drainage, eye irritation, head trauma, sore throat, voice change Cardiovascular: Positive palpitations, Denies any chest pain, shortness of breath, tachycardia Respiratory: Denies any shortness of breath, cough, wheeze, stridor GI/: Denies any abdominal pain, nausea, vomiting, diarrhea, bright red blood per rectum, melanotic stools, urinary frequency, urinary retention, dysuria, hematuria MSK: Denies any joint pain, muscle pains, swelling Skin: Denies any rashes, lesions, discoloration Neuro: Denies any headache, lightheadedness, dizziness, fainting, weakness Psych: Denies SI/HI Patient History Medical History Allergic rhinitis Anticoagulation management encounter Chicken pox (~1958) Chronic sinusitis Essential hypertension Fractures (~1993) GERD without esophagitis Measles (~1961) Mixed hyperlipidemia Mumps (~1959) Osteoarthritis (~2017) Osteoporosis (~2016) Paroxysmal atrial fibrillation Vision disorder Surgical History Anesthesia History of dilatation and curettage (~2007) History of eye surgery (~2005) History of gastric surgery (~2016) History of skin graft (~1975) Trigger thumb (~2018) Family History Father Prostate cancer Lung cancer Hypertension Hyperlipidemia Mother Hypertension Hyperlipidemia Stroke Brother Parkinson's disease Brother Mental health problem Grandfather Parkinson's disease Grandfather History of emphysema Grandmother Dementia Social History Smoking Status: Former smoker Smoking Status: Former smoker Exam Narrative Exam Narrative: General: Cooperative, comfortable, well-developed, not in acute distress HEENT: Normocephalic, atraumatic, PERRLA, normal sclera, eyelids normal, Neck: Active full range of motion, atraumatic Chest: Normal to inspection, negative crepitus, no overlying erythema ecchymosis Respiratory: Normal respiratory effort, not in acute respiratory distress, clear to auscultation bilaterally negative cough, wheeze, tachypnea, rhonchi, rales Cardiology: Regular rate rhythm negative gallop, murmur, rubs GI/: Normal to inspection, soft, nonrigid, no tenderness to palpation, exam deferred MSK: Full range of active range of motion of all 4 extremities, atraumatic Skin: No rashes lesions noted Neuro: Alert awake oriented x3, moves all 4 extremities spontaneously, cranial nerves intact, able to answer all questions appropriately follows commands appropriately Psych: Cooperative, negative suicidal or homicidal ideations Initial Vital Signs Initial Vital Signs: Vital Signs Pulse Rate 86 11/09/24 09:36 Respiratory Rate 22 11/09/24 09:36 Pulse Oximetry 100 11/09/24 09:36 Course Orders Ordered: ED Orders 11/09/24 09:36 EKG-12 Lead Stat 11/09/24 09:41 XR chest 1V Stat 11/09/24 09:45 Complete Blood Count AUTO DIFF Stat Comprehensive Metabolic Panel Stat Lipase Stat MAG [Magnesium] Stat TSH [Thyroid Stimulating Hormone] Stat Troponin & CK Cardiac Panel Stat Vital Signs Vital signs: Vital Signs - 8 hr 11/09/24 09:36 11/09/24 09:45 Temperature 98.0 F Pulse Rate 86 84 Respiratory Rate 22 16 Blood Pressure 145/74 H Pulse Oximetry 100 97 Oxygen Delivery Method Room Air MDM - Arrhythmia/Palpitations Differential Diagnosis Differential diagnosis: Likely palpitations, artial fibrillation, artial flutter and other (Electrolyte abnormality, ACS, pneumonia) Lab Data 11/09/24 09:45 11/09/24 09:45 Labs: Lab Results 11/09/24 Range/Units 09:45 WBC 6.0 (4.5-11.0) X10^3/uL RBC 4.72 (4.0-5.2) X10^6/uL Hgb 15.0 (12.0-16.0) g/dL Hct 44.9 (36-46) % MCV 95.2 (80-100) fL MCH 31.9 (26-34) PG MCHC 33.5 (30-36) % RDW 12.4 (11.6-14.8) % Plt Count 240 (150-400) X10^3/uL Neut % (Auto) 67.7 (50-75) % Lymph % (Auto) 21.5 L (25-40) % [place] % (Auto) 6.9 (3-14) % Eos % (Auto) 2.8 (2-4) % Baso % (Auto) 1.1 (0-2) % Neut # (Auto) 4100 (2853-6329) /uL Lymph # (Auto) 1300 (2272-4144) /uL [place] # (Auto) 400 (0-900) /uL Eos # (Auto) 200 (0-450) /uL Baso # (Auto) 100 (0-100) /uL Sodium 139 (137-145) mmol/L Potassium 3.7 (3.4-5.1) mmol/L Chloride 104 (98-107) mmol/L Carbon Dioxide 24 (22-32) mmol/L BUN 19 H (7-17) mg/dL Creatinine 0.87 (0.52-1.04) mg/dL Estimated GFR > 60 (>60) mL/min BUN/Creatinine Ratio 21.8 (6-22) Glucose 100 (80-110) mg/dL Calcium 9.2 (8.4-10.2) mg/dL Magnesium 2.0 (1.6-2.3) mg/dL Total Bilirubin 0.5 (0.2-1.3) mg/dL AST 36 (14-36) IU/L ALT 25 (<35) IU/L Alkaline Phosphatase 75 (38-126) U/L Total Creatine Kinase 59 (30-135) U/L Troponin I < 0.012 (0.01-0.034) ng/mL Total Protein 7.7 (6.3-8.2) g/dL Albumin 4.7 (3.5-5.0) g/dL Globulin 3.0 (1.7-4.1) g/dL Albumin/Globulin Ratio 1.6 (1.0-2.8) Lipase 137 (23-300) U/L TSH 2.44 (0.47-4.68) uIU/mL Imaging Data Chest x-ray: Radiologist's Impresson: [address] [address] XRay Report Signed Patient: Mani Elder MR#: [id number] : 1955 Acct:[id number] Age/Sex: 68 / F Date of Service: 11/09/24 Loc: ED Accession Number: [id number] Procedure: XR chest 1V Ordering Provider: Deniz Singer D.O. PROCEDURE: XR CHEST 1V INDICATIONS: palpitations TECHNIQUE: One view of the chest was acquired. COMPARISON: [facility], CR, XR CHEST 1V, 10/19/2024, 3:31. [facility], CR, XR CHEST 1V, 10/05/2024, 7:46. FINDINGS: Surgical changes and devices: None. Lungs and pleura: Lungs are clear. No pleural effusions or pneumothorax. Mediastinum: Mediastinal contours appear normal. Heart size is normal. Bones and chest wall: No suspicious bony lesions. Overlying soft tissues appear unremarkable. IMPRESSION: No acute cardiopulmonary abnormality is seen. ECG Data Interpretation: EKG interpreted by ED physician atrial fibrillation 75 beats per minute QTC [address] changes no STEMI MDM Narrative Medical decision making narrative: 68-year-old female with a history of paroxysmal AFib on Eliquis, hyperlipidemia presents from home for evaluation palpitations woke up feeling palpitations, took 50 mg metoprolol 1 hour prior to arrival here in the emergency department patient paroxysmal AFib controlled in the 80s. Patient stating that she does have an appointment today with her primary care doctor given her history of paroxysmal AFib requiring cardioversion in the past. Also states that she has an appointment with her commercial credit portfolio manager in 1 week to schedule an possible ablation. Patient EKG showing AFib rate controlled has been monitored for several hours here in the emergency department has been rate controlled under 100, patient chest x-ray without any acute cardiopulmonary abnormalities. I informed patient that she does not meet requirement for cardio version at this time strict return precautions were given she verbalized understanding of this and agrees to being discharged home with outpatient follow up Discharge Plan Departure Patient Disposition: Home Clinical Impression: Palpitation Instructions: DI for Atrial Fibrillation Activity Restrictions/Additional Instructions: Please follow up with your primary care doctor and commercial credit portfolio manager for your scheduled appointments Please read the discharge instructions sheet carefully and bring all papers to all doctor follow-up visits, as it may contain information that your doctor may want to see. Disease processes change and evolve, if your symptoms worsen or if you develop any new symptoms that are concerning to you please return for evaluation. Your evaluation today does not show any evidence of any life-threatening/serious illnesses requiring admission to the hospital or surgery. Please follow-up with your doctor for re-evaluation in approximately 1 day. Seek immediate medical attention for any worrisome symptoms. *If you do not have a primary care provider please contact the [facility] Resource line at [phone]. They will ask some questions about your medical history and help get you set up with a doctor in the community. Prescriptions: No Action azelastine 137 mcg (0.1 %) aerosol,spray 1 spray intranasal BID Qty: 30 6RF Rx Instructions: administer into each nostril metoprolol tartrate 25 mg tablet 25 mg PO BID Qty: 180 3RF rosuvastatin 10 mg tablet 10 mg PO DAILY Qty: 90 3RF Eliquis 5 mg tablet 5 mg PO BID fexofenadine [Erika Allergy] 180 mg tablet 180 mg PO DAILY multivitamin Tablet 1 tab PO DAILY cholecalciferol (vitamin D3) 50 mcg (2,000 unit) capsule 50 mcg PO DAILY methocarbamol 500 mg tablet 500 mg PO TID Qty: 30 1RF Rx Instructions: 1-2 tablets three times daily as needed for spasms/pain amlodipine 5 mg tablet 5 mg PO DAILY Qty: 90 3RF Referrals: Romeo Long MD [Primary Care Provider] - Stand Alone Forms: Patient Portal/API/Survey
[2024-11-09 09:36] VITALS: PULSE 86; RESP 22; O2SAT 100
--- NOTE | 2024-11-09 09:41 | DI.RAD.S_ITS ---
PROCEDURE: XR CHEST 1V INDICATIONS: palpitations TECHNIQUE: One view of the chest was acquired. COMPARISON: [facility], CR, XR CHEST 1V, 10/19/2024, 3:31. [facility], CR, XR CHEST 1V, 10/05/2024, 7:46. FINDINGS: Surgical changes and devices: None. Lungs and pleura: Lungs are clear. No pleural effusions or pneumothorax. Mediastinum: Mediastinal contours appear normal. Heart size is normal. Bones and chest wall: No suspicious bony lesions. Overlying soft tissues appear unremarkable. IMPRESSION: No acute cardiopulmonary abnormality is seen. Dictated by: Ramiro Mckeon M.D. on 11/09/2024 at 11:00 Approved by: Ramiro Mckeon M.D. on 11/09/2024 at 11:01
[2024-11-09 09:45] VITALS: BP 145/74; PULSE 84; RESP 16; TEMP 36.7; O2SAT 97; BMI 18.1
[2024-11-09 09:50] LABS: Add Manual Diff / Slide Review NO; Basophils Absolute Auto 100 /uL (0-100); Basophils Percent Auto 1.1 % (0-2); Eosinophils Absolute Auto 200 /uL (0-450); Eosinophils Percent Auto 2.8 % (2-4); Hematocrit 44.9 % (36-46); Lymphocytes Absolute Auto 1300 /uL (1100-4500); Lymphocytes Percent Auto 21.5 % (25-40); Mean Corpuscular HGB Conc 33.5 % (30-36); Mean Corpuscular Hemoglobin 31.9 PG (26-34); Mean Corpuscular Volume 95.2 fL (80-100); Monocytes Absolute Auto 400 /uL (0-900); Monocytes Percent Auto 6.9 % (3-14); Neutrophils Absolute Auto 4100 /uL (1500-7000); Neutrophils Percent Auto 67.7 % (50-75); Platelet Count 240 X10^3/uL (150-400); Red Blood Cell Count 4.72 X10^6/uL (4.0-5.2); Red Cell Distribution Width 12.4 % (11.6-14.8)
--- NOTE | 2024-11-09 09:50 | EKG_ITS ---
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
[2024-11-09 10:00] VITALS: BP 131/64; PULSE 78; RESP 18; O2SAT 98
[2024-11-09 10:03] LABS: Alanine Aminotransferase 25 IU/L (<35); Albumin 4.7 g/dL (3.5-5.0); Albumin Globulin Ratio 1.6 (1.0-2.8); Alkaline Phosphatase 75 U/L (38-126); Aspartate Aminotransferase 36 IU/L (14-36); BUN Creatinine Ratio 21.8 (6-22); Bilirubin Total 0.5 mg/dL (0.2-1.3); Blood Urea Nitrogen 19 mg/dL (7-17); Calcium 9.2 mg/dL (8.4-10.2); Carbon Dioxide 24 mmol/L (22-32); Chloride 104 mmol/L (98-107); Creatine Kinase 59 U/L (30-135); Estimated Glomerular Filt Rate > 60 mL/min (>60); Glucose 100 mg/dL (80-110); HEMOLYSIS < 15 (0-50); Lipase 137 U/L (23-300); Potassium 3.7 mmol/L (3.4-5.1); Sodium 139 mmol/L (137-145); Total Protein 7.7 g/dL (6.3-8.2)
[2024-11-09 10:15] LABS: Troponin I < 0.012 ng/mL (0.01-0.034)
[2024-11-09 10:21] VITALS: BP 137/73; PULSE 79; RESP 13; O2SAT 99
[2024-11-09 10:30] VITALS: BP 126/70; PULSE 80; RESP 19; O2SAT 99
[2024-11-09 10:43] LABS: Thyroid Stimulating Hormone 2.44 uIU/mL (0.47-4.68)
[2024-11-09 11:00] VITALS: BP 138/66; PULSE 83; RESP 23; O2SAT 97
--- NOTE | 2024-11-09 11:29 | PC.NURSE ---
pt with [address] Long. currently 1130. called office and spoke to Hien BLACK and advised pt will be late and RN ok'd.
== END 2024-11-09 11:29 | disposition home or self-care (01) ==
PROVIDERS: Emergency Provider Student in an Organized Health Care Education/Training Program; PCP Internal Medicine
DX: R00.2 Palpitations (principal); I48.0 Paroxysmal atrial fibrillation; Z79.01 Long term (current) use of anticoagulants; I10 Essential (primary) hypertension
CPT/HCPCS: 36415; 71045; 80053; 82550; 83690; 83735; 84443; 84484; 85025; 93005; 99283; 99284

== ENCOUNTER → 2024-11-25 11:04 | Outpatient (CLI) | payer MEDICARE, SELFPAY ==
[2024-11-25 11:47] LABS: Add Manual Diff / Slide Review NO; Basophils Absolute Auto 0 /uL (0-100); Basophils Percent Auto 0.8 % (0-2); Eosinophils Absolute Auto 100 /uL (0-450); Eosinophils Percent Auto 1.8 % (2-4); Hematocrit 41.2 % (36-46); Hemoglobin 14.1 g/dL (12.0-16.0); Lymphocytes Absolute Auto 1300 /uL (1100-4500); Lymphocytes Percent Auto 23.9 % (25-40); Mean Corpuscular HGB Conc 34.3 % (30-36); Mean Corpuscular Hemoglobin 32.3 PG (26-34); Monocytes Absolute Auto 500 /uL (0-900); Monocytes Percent Auto 9.4 % (3-14); Neutrophils Absolute Auto 3400 /uL (1500-7000); Neutrophils Percent Auto 64.1 % (50-75); Platelet Count 235 X10^3/uL (150-400); Red Blood Cell Count 4.38 X10^6/uL (4.0-5.2); Red Cell Distribution Width 12.4 % (11.6-14.8); White Blood Cell Count 5.3 X10^3/uL (4.5-11.0)
[2024-11-25 12:17] LABS: INR 1.2 (0.9-1.3); Prothrombin Time 13.5 SECONDS (9.4-12.5)
[2024-11-25 12:49] LABS: Albumin 4.4 g/dL (3.5-5.0); BUN Creatinine Ratio 25.8 (6-22); Blood Urea Nitrogen 23 mg/dL (7-17); Calcium 9.2 mg/dL (8.4-10.2); Carbon Dioxide 27 mmol/L (22-32); Chloride 101 mmol/L (98-107); Estimated Glomerular Filt Rate > 60 mL/min (>60); Glucose 91 mg/dL (80-110); HEMOLYSIS < 15 (0-50); Phosphorous 4.6 mg/dL (2.8-4.1); Potassium 4.4 mmol/L (3.4-5.1); Sodium 137 mmol/L (137-145)
== END ==
PROVIDERS: PCP Internal Medicine; Referring Provider Internal Medicine Cardiovascular Disease; Visit Provider Internal Medicine Cardiovascular Disease
DX: I48.0 Paroxysmal atrial fibrillation (principal); Z01.810 Encounter for preprocedural cardiovascular examination
CPT/HCPCS: 36415; 80069; 85025; 85610

== ENCOUNTER → 2024-12-19 | Outpatient (CLI) | payer MEDICARE, SELFPAY ==
--- NOTE | 2024-12-19 12:55 | DI.MG.S_ITS ---
MM screening mammo BI: 12/19/2024. BI-RADS: 1 CLINICAL: 69-year old female for bilateral screening mammogram. Tyrer-Cuzick lifetime risk of 6.9%. No personal or first-degree family history of breast cancer. Current reported family history of breast cancer: maternal aunt. PRIOR EXAMS 12/10/2023, 11/22/2022, 11/11/2021, 10/31/2020. MAMMOGRAPHY TECHNIQUE: 2D and 3D (tomosynthesis) digital mammographic views obtained, with additional images as needed for full coverage. Current study was also evaluated with a Computer Aided Detection (CAD) system. DENSITY C. The breasts are heterogeneously dense, which may obscure small masses. MAMMOGRAPHY FINDINGS Bilateral: No suspicious mass, asymmetry, microcalcification, or other abnormality seen. No significant change from comparison. IMPRESSION: * No evidence of malignancy. RECOMMENDATIONS Bilateral * Annual screening mammography. OVERALL ASSESSMENT CATEGORY BI-RADS-1: Negative. The [employer] recommends annual screening mammography beginning at age 40 for women with average risk of breast cancer. ELECTRONICALLY SIGNED: Marietta Ybarra M.D. on 12/21/2024 at 12:31:10 PM PT Interpreting Station ID: [id number]
== END ==
LOC: MAMMO 12:54
PROVIDERS: PCP Internal Medicine; Referring Provider Internal Medicine; Visit Provider Internal Medicine
DX: Z12.31 Encounter for screening mammogram for malignant neoplasm of breast (principal); Z80.3 Family history of malignant neoplasm of breast; R92.333 Mammographic heterogeneous density, bilateral breasts
CPT/HCPCS: 77063; 77067

== ENCOUNTER → 2025-01-18 07:11 | Outpatient (CLI) | payer MEDICARE, SELFPAY ==
[2025-01-18 08:23] LABS: Cholesterol 188 mg/dL (140-199); HDL Cholesterol 63 mg/dL (40-60); LDL Cholesterol Calculated 109 mg/dL (<100); Triglycerides 82 mg/dL (35-150)
[2025-01-18 08:24] LABS: Creatinine Urine Random 59.46 mg/dL
[2025-01-22 14:36] LABS: Creatinine, Urine 53.1 mg/dL (Not Estab.); N-telo/Creat. Ratio 20 (0-89); N-telopeptide 93 nmol BCE (Not Estab.)
== END ==
PROVIDERS: Internal Medicine Interventional Cardiology; PCP Internal Medicine; Referring Provider Internal Medicine Endocrinology, Diabetes & Metabolism; Visit Provider Internal Medicine Endocrinology, Diabetes & Metabolism
DX: E78.5 Hyperlipidemia, unspecified (principal); M81.6 Localized osteoporosis [Lequesne]
CPT/HCPCS: 36415; 80061; 82523; 82570

== ENCOUNTER → 2025-01-20 14:46 | Outpatient (CLI) | payer MEDICARE, SELFPAY ==
--- NOTE | 2025-01-20 14:47 | DI.RAD.S_ITS ---
PROCEDURE: XR CHEST 2V INDICATIONS: upper back pain TECHNIQUE: 2 views of the chest were acquired. COMPARISON: [facility], , XR CHEST 1V, 11/09/2024, 10:10. FINDINGS: Surgical changes and devices: None. Lungs and pleura: Lungs are clear. No pleural effusions or pneumothorax. Mediastinum: Mediastinal contours are normal. Heart size is normal. Bones and chest wall: No suspicious bony abnormalities. Soft tissues appear unremarkable. IMPRESSION: No acute cardiopulmonary abnormality is seen. Approved by: Diony Aguiar M.D. on 01/21/2025 at 16:37
== END ==
PROVIDERS: PCP Internal Medicine; Referring Provider Internal Medicine; Visit Provider Internal Medicine
DX: M54.6 Pain in thoracic spine (principal)
CPT/HCPCS: 71046

== ENCOUNTER → 2025-01-29 09:52 | Outpatient (CLI) | payer MEDICARE, SELFPAY ==
--- NOTE | 2025-01-29 09:53 | DI.RAD.S_ITS ---
PROCEDURE: XR DEXA AXIAL SKELETON INDICATIONS: 2 Year Follow Up - Osteoporosis COMPARISON: [facility], , XR DEXA AXIAL SKELETON, 02/19/2023, 10:05. FINDINGS: Lumbar Spine: Bone mineral density 0.761 g/cm2, T score -2.6, compared to -2.5. Left Femoral Neck: Bone mineral density 0.472 g/cm2, T score -3.4 compared to -3.5. Left Hip: Bone mineral density 0.660 g/cm2, T score -2.3, stable. Fracture Risk Calculation (when applicable): 10-year fracture risk of a major osteoporotic fracture 17% percent and of a hip fracture 6.6% percent. (T score greater or equal to -1.0 to: NORMAL) (T score from -1.1 to -2.4: OSTEOPENIA) (T score less than or equal to -2.5: OSTEOPOROSIS) IMPRESSION: Osteoporosis in the left femoral neck, as well as lumbar spine, stable. Follow-up guidelines as follows: Osteoporosis: Consider a repeat DEXA and Vertebral Fracture Assessment (VFA) exam in 2 years or sooner if medically necessary, to reassess this patient's status. Osteopenia: Consider a repeat DEXA in 2-3 years to reassess this patient's status, or if there is a new clinical indication. Normal: Consider a repeat DEXA in 5 years or sooner, or if there is a new clinical indication. All treatment decisions require clinical judgment and consideration of individual patient factors, including patient preferences, comorbidities, previous drug use, risk factors not captured in the FRAX model (e.g., frailty, falls, vitamin D deficiency, increased bone turnover, interval significant decline in bone density ) and possible under- or over-estimation of fracture risk by FRAX. In addition, the NOF Guide recommends that FDA-approved medical therapies be considered in postmenopausal women and men age >= 50 years with a: * Hip or vertebral (clinical or morphometric) fracture * T-score of <=-2.5 at the spine or hip * Ten-year fracture probability by FRAX of >= 3% for hip fracture or >=20% for major osteoporotic fracture. Dictated by: Jil Newell M.D. on 01/29/2025 at 12:51 Approved by: Jil Newell M.D. on 01/29/2025 at 12:56
== END ==
PROVIDERS: PCP Internal Medicine; Referring Provider Internal Medicine; Visit Provider Internal Medicine
DX: M81.0 Age-related osteoporosis without current pathological fracture (principal)
CPT/HCPCS: 77080

== ENCOUNTER → 2025-07-21 09:03 | Outpatient (CLI) | payer MEDICARE, SELFPAY | PROVIDERS: PCP Internal Medicine; Referring Provider Internal Medicine Endocrinology, Diabetes & Metabolism; Visit Provider Internal Medicine Endocrinology, Diabetes & Metabolism | DX: M81.6 Localized osteoporosis [Lequesne] (principal) | CPT/HCPCS: 82523 ==